=== PATIENT | male | born 2000 | race Hispanic/Latino ===

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

== ENCOUNTER 2020-01-13 08:00 | Emergency (ER) | payer SELFPAY ==
[2020-01-13] MEDS ORDERED: HYDROCODONE/APAP 5/325 MG TAB ONE (08:29)
[2020-01-13] MEDS ORDERED: IBUPROFEN 400 MG TAB ONE (08:30)
[2020-01-13] MEDS ORDERED: IBUPROFEN 200 MG TAB PO ONE (08:30)
[2020-01-13] MEDS ORDERED: TETANUS & DIPHTHERIA TOX,ADULT 0.5 ML VIAL ONE (08:30)
--- NOTE | 2020-01-13 09:09 | RAD REPORT ---
EXAM DESCRIPTION: RAD - Tib Fib Right - 01/13/2020 8:51 am CLINICAL HISTORY: Right leg pain status post injury FINDINGS: No fracture is seen
--- NOTE | 2020-01-13 09:11 | RAD REPORT ---
EXAM DESCRIPTION: RAD - Foot Right 3 View - 01/13/2020 8:51 am CLINICAL HISTORY: Right foot pain status post injury FINDINGS: No fracture or dislocation is seen
--- NOTE | 2020-01-13 09:11 | RAD REPORT ---
EXAM DESCRIPTION: Syed Single View01/13/2020 8:51 am CLINICAL HISTORY: Chest pain COMPARISON: none FINDINGS: The lungs appear clear of acute infiltrate. The heart is normal size IMPRESSION: No acute abnormalities displayed
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
[2020-01-13 11:43] VITALS: TEMP 98
[2020-01-13 11:46] VITALS: BP 118/76; O2SAT 97
--- NOTE | 2020-01-13 11:59 | RAD REPORT ---
EXAM DESCRIPTION: US - Lower Extremity Artery Uni Ltd - 01/13/2020 10:03 am CLINICAL HISTORY: Leg injury with leg pain COMPARISON: None FINDINGS: The waveforms of the right superficial femoral, right common femoral, right popliteal, rig ht posterior tibial and right dorsalis pedis artery are triphasic. No occlusion. No high-grade stenosis IMPRESSION: Unremarkable exam
== END 2020-01-13 11:34 | disposition home or self-care (01) ==
LOC: ER 08:00
DX: S97.01XA Crushing injury of right ankle, initial encounter (principal); S20.419A Abrasion of unspecified back wall of thorax, initial encounter; S70.211A Abrasion, right hip, initial encounter; S80.811A Abrasion, right lower leg, initial encounter; X58.XXXA Exposure to other specified factors, initial encounter; Y93.9 Activity, unspecified; Y92.89 Other specified places as the place of occurrence of the external cause; F17.210 Nicotine dependence, cigarettes, uncomplicated
CPT/HCPCS: 71045; 90471; 90714; 93926; 99284

== ENCOUNTER 2020-02-20 09:59 | Emergency (ER) | payer SELFPAY ==
[2020-02-20 10:48] LABS: Protime INR 1.16
[2020-02-20 11:02] LABS: ALT/SGPT 10 U/L (12-78); AST/SGOT 9 U/L (15-37); Albumin 4.1 g/dL (3.4-5.0); Alkaline Phosphatase 54 U/L (45-117); BUN Blood Urea Nitrogen 9 mg/dL (7-18); Bicarbonate 27 mmol/L (21-32); Bilirubin Direct 0.3 mg/dL (0-0.2); Glucose Level 95 mg/dL (74-106); Potassium 3.4 mmol/L (3.5-5.1); Protein, Total 7.5 g/dL (6.4-8.2); Sodium Level 140 mmol/L (136-145)
[2020-02-20 11:03] LABS: Barbiturates NEGATIVE (NEGATIVE); Benzodiazepines POSITIVE (NEGATIVE); Cocaine POSITIVE (NEGATIVE); METHAMPHETAM POSITIVE (NEGATIVE); Methadone NEGATIVE (NEGATIVE); Opiates NEGATIVE (NEGATIVE); Phencyclidine NEGATIVE (NEGATIVE); THC Cannibis POSITIVE (NEGATIVE)
[2020-02-20 11:09] LABS: Absolute Lymphocytes (CBC) 1.6 K/uL (0.7-4.9); Basophils % 0.3 % (0-1.3); Lymphocytes % 21.3 % (15.3-44.8); MPV 8.5 fL (7.6-11.3); RBC Red Blood Cell Count 5.05 M/uL (4.33-5.43)
[2020-02-20 12:11] LABS: Urine Blood NEGATIVE (NEG); Urine Glucose NEGATIVE (NEG); Urine Protein 1+ (NEG); Urine Specific Gravity 1.025 (1.005-1.030); Urine pH 6.5 (5.0-7.0)
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
--- NOTE | 2020-02-20 13:38 | ER ---
Nurse's Notes [facility] Name: El Cartwright Age: 19 yrs Sex: Male : 2000 Arrival Date: 02/20/2020 Time: 10:02 Bed 19 Private MD: Diagnosis: Acute stress reaction;Abrasion of forearm Presentation: 02/19 10:13 Chief complaint: EMS states: mother called because patient had self inflicted pain upon ss himself by cutting bilateral forearms with a razor blade. Multiple superficial abrasions noted to bilateral forearms. No bleeding noted at this time. Pt denies SI/HI at this time and states that he was "preparing" for a physical fight for when his dad got home. Pt states, "my dad is not an easy person to talk to. We got in an argument this morning and we were supposed to fight when he got home.. Coronavirus screen: Client denies travel out of the [place] in the last 14 days. At this time, the client does not indicate any symptoms associated with coronavirus-19. Ebola Screen: Patient denies exposure to infectious person. Patient denies travel to an Ebola-affected area in the 21 days before illness onset. Initial Sepsis Screen: Does the patient meet any 2 criteria? No. Patient's initial sepsis screen is negative. Does the patient have a suspected source of infection? No. Patient's initial sepsis screen is negative. Risk Assessment: Do you want to hurt yourself or someone else? Patient reports no desire to harm self or others. Onset of symptoms was February 20, 2020. 10:13 Method Of Arrival: EMS: [facility] 10:13 Acuity: ELIZABETH 2 ss Historical: - Allergies: 10:20 No Known Allergies; ss - Home Meds: 10:20 "supposed to take Bipolar medication but never has" [Active]; ss - PMHx: 10:20 sleeping disorder; RLS; Bipolar disorder; ss - PSHx: 10:20 R femur; ss - Immunization history:: Adult Immunizations up to date. - Social history:: Smoking status: Patient denies any tobacco usage or history of. Screenin:31 Abuse screen: Denies threats or abuse. Nutritional screening: No deficits noted. em Tuberculosis screening: No symptoms or risk factors identified. Fall Risk None identified. Assessment: 10:30 General: Appears in no apparent distress. comfortable, Behavior is calm, cooperative, em appropriate for age. Pain: Denies pain. Neuro: Level of Consciousness is awake, alert, obeys commands, Oriented to person, place, time, situation, Appropriate for age. Cardiovascular: Capillary refill < 3 seconds Patient's skin is warm and dry. Respiratory: Airway is patent Respiratory effort is even, unlabored, Respiratory pattern is regular, symmetrical. Derm: Skin is intact, is healthy with good turgor, Skin is pink, warm \\T\\ dry. Wound noted Other: superficial lacerations noted to jah. forearms, no bleeding noted at this time. Musculoskeletal: Capillary refill < 3 seconds, Range of motion: intact in all extremities. 11:30 Reassessment: Patient appears in no apparent distress at this time. Patient is alert, em oriented x 3, equal unlabored respirations, skin warm/dry/pink. 12:08 Reassessment: valuables inventory check list done and placed on chart (Iphone, arch pad cementer, em shorts, shirt, shoes, wallet, 225.00 sosa, ID card, and S.S. card) ,items will be sent with security. 12:55 Reassessment: pt on the phone via [employer] with [employer] screeners. em 13:44 Reassessment: Patient appears in no apparent distress at this time. provider at bedside.em Psych: 10:30 Subjective: Patient's mood is sad, Delusions are denied, Hallucinations are denied em Having thoughts of currently denies SI/HI, just is angry with father. Objective: Patient is cooperative, Speech is normal, Affect is appropriate, Patient has mutilated themselves by superficial lacerations to jah. forearms. Interventions: Removed personal items and placed in bag. Patient placed in hospital gown. Searched person for dangerous items. Urine collected and sent for urine drug test. Belonging list filled out. Suicide Risk Assessment: Sad Person Scale: Sex of patient: Male: Score 1 point. Age of patient: Score 0 point if patient falls outside of specified age parameters. Depression: Score 1 point if signs of depression are present. Previous Attempt: Score 0 point if patient has not previously attempted suicide. Substance Abuse: Score 1 point if patient abuses alcohol or drugs. Rational Thinking: Score 0 point if patient has rational thinking. Social Support: Score 1 point if social support is lacking and/or unavailable. Organized Plan: Score 0 if patient did not have an organized plan in place. TOTAL POINTS: If total points are 3-4, proposed clinical action is close follow-up/consider hospitalization. Safety Checks: Personal items have been removed. Door is open. No visitors are present at this time. Patient uses benzodiazepines Patient uses marijuana. Commitment: Patient will be a voluntary commitment. Vital Signs: 10:31 BP 105 / 63; Pulse 62; Resp 18; Temp 98.3(O); Pulse Ox 100% on R/A; Weight 74.84 kg; em Height 5 ft. 10 in. (177.80 cm); Pain 0/10; 10:31 Body Mass Index 23.67 (74.84 kg, 177.80 cm) em ED Course: 10:02 Patient arrived in ED. ss 10:02 Rakesh Day NP is PHCP. pm1 10:03 Rolando Green MD is Attending Physician. pm1 10:18 Deo Grady, RN is Primary Nurse. em 10:18 Triage completed. ss 10:20 Arm band placed on right wrist. ss 10:25 Urine collected: clean catch specimen, elsa colored. dh3 10:28 EKG done, by ED staff, reviewed by Rakesh Day NP. dh3 10:30 Patient has correct armband on for positive identification. Placed in gown. Bed in low em position. Call light in reach. Side rails up X2. Valuables inventory done. Locked in safe. See valuables checklist. 10:30 Missed attempt(s): 20 gauge in right forearm. Bleeding controlled, band aid applied, dh3 catheter tip intact. 10:32 Initial lab(s) drawn, by de, sent to lab. Inserted saline lock: 22 gauge in right hand, dh3 using aseptic technique. Blood collected. 11:48 called the [facility] Crisis line to page out a screener to come evaluate the patient. eb 14:04 No provider procedures requiring assistance completed. IV discontinued, intact, em bleeding controlled, No redness/swelling at site. Pressure dressing applied. Administered Medications: No medications were administered Outcome: 13:38 Discharge ordered by MD. pm1 14:04 Discharged to home ambulatory. em 14:04 Condition: improved 14:04 Discharge instructions given to patient, Instructed on discharge instructions, follow up and referral plans. Demonstrated understanding of instructions, follow-up care. 14:05 Patient left the ED. em Signatures: Deo Grady RN RN em Smirch, Shelby, RN RN ss Rakesh Day, XANDER TAMALE MACHINE FEEDER pm1 Shira Wall 3 Shelley Ramirez
[2020-02-20 14:13] VITALS: BP 105/63; TEMP 98.3; O2SAT 100
--- NOTE | 2020-02-21 15:36 | EKG ---
Test Date: 2020-02-20 Test Time: 10:17:33 Windows Application Developer: JASVIR MEASUREMENT RESULTS: Intervals: Rate: 56 MA: 136 QRSD: 100 QT: 384 QTc: 370 [place]: P: 41 MA: 136 QRS: 62 T: 54 INTERPRETIVE STATEMENTS: Sinus bradycardia Otherwise normal ECG Compared to ECG 03/09/2018 18:09:38 Sinus rhythm no longer present Electronically Signed On 02-21-20 15:34:45 CDT by Dez Akhtar
== END 2020-02-20 14:05 | disposition home or self-care (01) ==
LOC: ER 09:59
DX: F43.0 Acute stress reaction (principal); S50.812A Abrasion of left forearm, initial encounter; S50.811A Abrasion of right forearm, initial encounter; F31.9 Bipolar disorder, unspecified
CPT/HCPCS: 36415; 80048; 80076; 80307; 80320; 80329; 81003; 85025; 85610; 85730; 93005; 99285

== ENCOUNTER 2020-05-17 08:41 | Emergency (ER) | payer SELFPAY ==
[2020-05-17] MEDS ORDERED: LORazepam 2 MG/ML VIAL ONE ×2 (09:08→09:59)
[2020-05-17] MEDS ORDERED: THIAMINE 200 MG/2 ML INJ ONE (09:09)
[2020-05-17] MEDS ORDERED: FAMOTIDINE 20 MG/2 ML VIAL IV ONE (09:09)
[2020-05-17] MEDS ORDERED: ONDANSETRON 4 MG/2 ML VIAL ONE (09:09)
[2020-05-17] MEDS ORDERED: NA CHLORIDE 0.9% 1,000 ML ONE (09:09)
--- NOTE | 2020-05-17 09:26 | RAD REPORT ---
EXAM DESCRIPTION: RAD - Chest Single View - 05/17/2020 9:13 am CLINICAL HISTORY: COUGH Chest pain. COMPARISON: Chest Single View dated 01/13/2020 FINDINGS: Portable technique limits examination quality. The lungs are grossly clear. The heart is normal in size. No displaced fractures. IMPRESSION: No acute intrathoracic process suspected.
[2020-05-17 09:35] LABS: Absolute Lymphocytes (CBC) 1.1 K/uL (0.7-4.9); Basophils % 0.2 % (0-1.3); Hematocrit 47.9 % (39.6-49.0); Lymphocytes % 5.9 % (15.3-44.8); MPV 8.5 fL (7.6-11.3); RBC Red Blood Cell Count 5.41 M/uL (4.33-5.43)
[2020-05-17 09:39] LABS: Protime INR 1.18
[2020-05-17 09:59] LABS: ALT/SGPT 19 U/L (12-78); AST/SGOT 36 U/L (15-37); Albumin 4.6 g/dL (3.4-5.0); Alkaline Phosphatase 50 U/L (45-117); BUN Blood Urea Nitrogen 9 mg/dL (7-18); Bicarbonate 20 mmol/L (21-32); Bilirubin Direct 0.2 mg/dL (0-0.2); Glucose Level 164 mg/dL (74-106); Magnesium 1.6 mg/dL (1.8-2.4); Potassium 3.4 mmol/L (3.5-5.1); Protein, Total 7.8 g/dL (6.4-8.2); Sodium Level 138 mmol/L (136-145); Troponin (Emerg Dept Use Only) < 0.02 ng/mL (0.0-0.045)
--- NOTE | 2020-05-17 10:06 | RAD REPORT ---
EXAM DESCRIPTION: CT - Head Brain Wo Cont - 05/17/2020 9:39 am CLINICAL HISTORY: CONFUSED Headache, drowsiness COMPARISON: No comparisons TECHNIQUE: All CT scans are performed using dose optimization technique as appropriate and may inclu de automated exposure control or mA/KV adjustment according to patient size. FINDINGS: No intracranial hemorrhage, hydrocephalus or extra-axial fluid collection.No areas of brai n edema or evidence of midline shift. The paranasal sinuses and mastoids are clear. The calvarium is intact. IMPRESSION: No acute intracranial abnormality.
[2020-05-17 10:16] LABS: Blood Morphology Comment NOT SEEN (NOT SEEN); Platelet Estimate ADEQ; White Blood Cell Scan OK (OK)
--- NOTE | 2020-05-17 10:36 | EDPHYS ---
Physician Documentation [facility] Name: El Cartwright Age: 19 yrs Sex: Male : 2000 Arrival Date: 05/17/2020 Time: 08:45 Bed 7 Private MD: ED Physician Rolando Green HPI: 05/17 08:48 This 19 yrs old Male presents to ER via EMS with complaints of vomiting blood, donte substance abuse. 08:48 The patient presents to the emergency department after a known overdose, a result of [facility] recreational substance abuse. Context: Method: the patient has a confirmed or suspected ingestion, of alcohol, amphetamines, of benzodiazepines, of cocaine. Associated signs and symptoms: Pertinent positives: depression, dizziness, loss of consciousness, vomiting. Severity of symptoms: At their worst the symptoms were mild moderate in the emergency department the symptoms are unchanged. substance abuse, vomiting. The patient presents with trouble concentrating. Onset: The symptoms/episode began/occurred 3 day(s) ago. Associated signs and symptoms: The patient has no apparent associated signs or symptoms. Historical: - Allergies: 08:48 No Known Allergies; bp - Home Meds: 08:48 "supposed to take Bipolar medication but never has" [Active]; bp - PMHx: 08:48 Bipolar disorder; RLS; sleeping disorder; bp - Immunization history:: Adult Immunizations up to date. - Social history:: Smoking status: unknown. - Family history:: not pertinent. ROS: 08:48 Constitutional: Negative for fever, chills, and weight loss, Eyes: Negative for injury, donte pain, redness, and discharge, ENT: Negative for injury, pain, and discharge, Neck: Negative for injury, pain, and swelling, Cardiovascular: Negative for chest pain, palpitations, and edema, Respiratory: Negative for shortness of breath, cough, wheezing, and pleuritic chest pain, Back: Negative for injury and pain, : Negative for injury, bleeding, discharge, and swelling, MS/Extremity: Negative for injury and deformity, Skin: Negative for injury, rash, and discoloration, Neuro: Negative for headache, weakness, numbness, tingling, and seizure, Psych: Negative for depression, anxiety, suicide ideation, homicidal ideation, and hallucinations, Allergy/Immunology: Negative for hives, rash, and allergies, Endocrine: Negative for neck swelling, polydipsia, polyuria, polyphagia, and marked weight changes, Hematologic/Lymphatic: Negative for swollen nodes, abnormal bleeding, and unusual bruising. 08:48 Abdomen/GI: Positive for abdominal pain, nausea and vomiting. Exam: 08:48 Constitutional: This is a well developed, well nourished patient who is awake, alert, donte and in no acute distress. Head/Face: Normocephalic, atraumatic. Eyes: Pupils equal round and reactive to light, extra-ocular motions intact. Lids and lashes normal. Conjunctiva and sclera are non-icteric and not injected. Cornea within normal limits. Periorbital areas with no swelling, redness, or edema. ENT: Nares patent. No nasal discharge, no septal abnormalities noted. Tympanic membranes are normal and external auditory canals are clear. Oropharynx with no redness, swelling, or masses, exudates, or evidence of obstruction, uvula midline. Mucous membranes moist. Neck: Trachea midline, no thyromegaly or masses palpated, and no cervical lymphadenopathy. Supple, full range of motion without nuchal rigidity, or vertebral point tenderness. No Meningismus. Chest/axilla: Normal chest wall appearance and motion. Nontender with no deformity. No lesions are appreciated. Cardiovascular: Regular rate and rhythm with a normal S1 and S2. No gallops, murmurs, or rubs. Normal PMI, no JVD. No pulse deficits. Respiratory: Lungs have equal breath sounds bilaterally, clear to auscultation and percussion. No rales, rhonchi or wheezes noted. No increased work of breathing, no retractions or nasal flaring. Abdomen/GI: Soft, non-tender, with normal bowel sounds. No distension or tympany. No guarding or rebound. No evidence of tenderness throughout. Back: No spinal tenderness. No costovertebral tenderness. Full range of motion. Male : Normal genitalia with no discharge or lesions. Skin: Warm, dry with normal turgor. Normal color with no rashes, no lesions, and no evidence of cellulitis. MS/ Extremity: Pulses equal, no cyanosis. Neurovascular intact. Full, normal range of motion. Psych: Awake, alert, with orientation to person, place and time. Behavior, mood, and affect are within normal limits. 08:48 Neuro: Orientation: to person, place, Not oriented to time, Mentation: confused, Memory: immediate memory is intact, Cranial nerves: is grossly normal based on the patient's age, no acute changes, Cerebellar function: no acute changes, Motor: moves all fours, Sensation: no obvious gross deficits, appropriate no acute changes, Gait: not tested. Deep tendon reflexes are 2+ (normal) in the bilateral brachioradialis, bicep, tricep and patellar and Achilles tendons, seizure activity, is not displayed by the patient. Vital Signs: 08:45 BP 121 / 97; Pulse 93; Resp 18; Temp 97.5; Pulse Ox 99% ; bp 09:30 BP 133 / 72; Pulse 91; Resp 17; Pulse Ox 100% ; bp 10:30 BP 122 / 71; Pulse 87; Resp 16; Temp 97.5; Pulse Ox 100% ; zb MDM: 08:45 Patient medically screened. donte 08:53 Differential diagnosis: Ingestion/exposure to drugs, numerous hypoglycemia, closed head donte injury. Differential Diagnosis altered mental status. Differential Diagnosis: CVA, electrolyte abnormality, alcohol intoxication, hypoglycemia, intracranial bleed, overdose, pneumonia, seizure, TIA, UTI, volume depletion. Data reviewed: vital signs, nurses notes, lab test result(s), EKG, radiologic studies, CT scan, plain films. Data interpreted: reinsurance claim analyst: rate is 93 beats/min, rhythm is regular, Pulse oximetry: is not applicable for this patient encounter. Test interpretation: by ED physician or midlevel provider: ECG, plain radiologic studies. Counseling: I had a detailed discussion with the patient and/or guardian regarding: the historical points, exam findings, and any diagnostic results supporting the discharge/admit diagnosis, lab results, radiology results. 05/17 08:47 Order name: Basic Metabolic Panel; Complete Time: 10:32 donte 05/17 08:47 Order name: CBC with Diff; Complete Time: 10:32 [facility] 05/17 08:47 Order name: LFT's; Complete Time: 10:32 donte 05/17 08:47 Order name: Magnesium; Complete Time: 10:32 donte 05/17 08:47 Order name: Troponin (emerg Dept Use Only); Complete Time: 10:32 [facility] 05/17 08:47 Order name: Acetaminophen; Complete Time: 10:32 donte 05/17 08:47 Order name: XRAY Chest (1 view); Complete Time: 10:32 [facility] 05/17 08:47 Order name: ETOH Level; Complete Time: 10:32 [facility] 05/17 08:47 Order name: PT-INR; Complete Time: 10:32 [facility] 05/17 08:47 Order name: Ptt, Activated; Complete Time: 10:32 [facility] 05/17 08:47 Order name: Salicylate; Complete Time: 10:32 [facility] 05/17 08:55 Order name: CT Head Brain wo Cont; Complete Time: 10:32 [facility] 05/17 10:16 Order name: CBC Smear Scan; Complete Time: 10:32 EDMS 05/17 08:47 Order name: EKG; Complete Time: 08:48 [facility] 05/17 08:47 Order name: Cardiac monitoring; Complete Time: 09:27 [facility] 05/17 08:47 Order name: EKG - Nurse/Tech; Complete Time: 09:27 [facility] 05/17 08:47 Order name: IV Saline Lock; Complete Time: 09:01 [facility] 05/17 08:47 Order name: Labs collected and sent; Complete Time: 09:27 [facility] 05/17 08:47 Order name: O2 Per Protocol; Complete Time: 09:01 [facility] 05/17 08:47 Order name: O2 Sat Monitoring; Complete Time: 09:01 [facility] Administered Medications: 09:05 Drug: NS 0.9% 1000 ml Route: IV; Rate: 1 bolus; Site: left forearm; bp 10:43 Follow up: IV Status: Completed infusion; IV Intake: 1000ml zb 09:05 Drug: Pepcid 20 mg Route: IVP; Site: left forearm; bp 09:49 Follow up: Response: Nausea is decreased bp 09:05 Drug: Thiamine 100 mg Route: IV; Rate: bolus; Site: left forearm; bp 10:43 Follow up: IV Status: Completed infusion; IV Intake: 100ml zb 09:05 Drug: Zofran (Ondansetron) 4 mg Route: IVP; Site: left forearm; bp 09:50 Follow up: Response: Nausea is decreased bp 09:05 Drug: Ativan 1 mg Route: IVP; Site: left forearm; bp 09:50 Follow up: Response: No adverse reaction; No change in condition bp 09:49 Drug: Ativan 1 mg Route: IVP; Site: left forearm; bp 09:50 Follow up: Response: No adverse reaction bp 10:35 Drug: Potassium Effervescent Tablet 25 mEq Route: PO; zb 10:45 Follow up: Response: No adverse reaction zb 10:35 Drug: Magnesium Oxide 400 mg Route: PO; zb 10:45 Follow up: Response: No adverse reaction zb 10:44 Not Given (Patient Refused): Magnesium Sulfate 1 grams IVPB once over 1 hrs zb Disposition: 05/17/20 10:35 Patient has left against medical advice. Impression: Cocaine abuse, Adverse effect of amphetamines, Adverse effect of benzodiazepines, Hypokalemia, Hypomagnesemia, Abuse of other non-psychoactive substances. - Patients states they are going to Home. - Condition is Undetermined. - Discharge Instructions: Potassium Content of Foods, Hypomagnesemia, Substance Use Disorder, Hypokalemia. Follow up: Private Physician; When: Upon discharge from the Emergency Department; Reason: Recheck today's complaints, Re-evaluation by your physician. - Problem is new. - Symptoms are unchanged. Signatures: Dispatcher [employer] EDOH Rolando Green MD MD cha Peltier, Brian, RN RN Kenia Thompson RN RN zb Corrections: (The following items were deleted from the chart) 10:43 10:35 05/17/2020 10:35 Patients has left against medical advice. Impression: Cocaine zb abuse; Adverse effect of amphetamines; Adverse effect of benzodiazepines; Hypokalemia; Hypomagnesemia; Abuse of other non-psychoactive substances. Patient states they are going to Home. Condition is Undetermined. Follow up: Private Physician; When: Upon discharge from the Emergency Department; Reason: Recheck today's complaints, Re-evaluation by your physician. Problem is new. Symptoms are unchanged. donte
--- NOTE | 2020-05-17 10:36 | ER ---
Nurse's Notes [facility] Name: El Cartwright Age: 19 yrs Sex: Male : 2000 Arrival Date: 05/17/2020 Time: 08:45 Bed 7 Private MD: Diagnosis: Cocaine abuse;Adverse effect of amphetamines;Adverse effect of benzodiazepines;Hypokalemia;Hypomagnesemia;Abuse of other non-psychoactive substances Presentation: 05/17 08:45 Chief complaint: EMS states: NAUSEA/VOMITING, DETOX OFF XANAX, METH, COKE, MJ. bp Coronavirus screen: At this time, the client does not indicate any symptoms associated with coronavirus-19. Ebola Screen: No symptoms or risks identified at this time. Initial Sepsis Screen: Does the patient meet any 2 criteria? HR > 90 bpm. No. Patient's initial sepsis screen is negative. Does the patient have a suspected source of infection? No. Patient's initial sepsis screen is negative. Risk Assessment: Do you want to hurt yourself or someone else? Patient reports no desire to harm self or others. Note LAST USED DRUGS 4 DAYS AGO. Onset of symptoms is unknown. Care prior to arrival: Medication(s) given: Normal saline infusion, 1000 mL, IV initiated. 18 GA, in the left forearm. 08:45 Method Of Arrival: EMS: [facility] bp 08:45 Acuity: ELIZABETH 3 bp Triage Assessment: 08:48 General: Appears distressed, uncomfortable, slender, unkempt, Behavior is agitated, bp anxious. Pain: Denies pain. EENT: Eyes PUPILS CONSTRICTED. Neuro: Level of Consciousness is awake, confused, Oriented to Appropriate for age. Cardiovascular: Rhythm is sinus tachycardia. GI: Abdomen is non-distended, Bowel sounds present X 4 quads. Abd is soft X 4 quads. : No signs and/or symptoms were reported regarding the genitourinary system. Derm: Skin is clammy, Skin is pale, Skin temperature is cool. Musculoskeletal: No deficits noted. Historical: - Allergies: 08:48 No Known Allergies; bp - Home Meds: 08:48 "supposed to take Bipolar medication but never has" [Active]; bp - PMHx: 08:48 Bipolar disorder; RLS; sleeping disorder; bp - Immunization history:: Adult Immunizations up to date. - Social history:: Smoking status: unknown. - Family history:: not pertinent. Screenin:50 Abuse screen: Denies threats or abuse. Denies injuries from another. Nutritional bp screening: No deficits noted. Tuberculosis screening: No symptoms or risk factors identified. Fall Risk None identified. Assessment: 08:50 General: SEE TRIAGE NOTE. bp 09:42 Reassessment: Patient appears in no apparent distress at this time. No changes from bp previously documented assessment. Patient and/or family updated on plan of care and expected duration. Pain level reassessed. PT TO CT. 10:28 Reassessment: Patient appears in no apparent distress at this time. Patient and/or bp family updated on plan of care and expected duration. Pain level reassessed. PT OOB AND D/C OWN PIV AND MONITORING DESPITE STAFF OBJECTIONS, MD INFORMED. 10:42 Reassessment: PT LEAVING AMA. URGED TO REMAIN FOR FURTHER TREATMENT BY STAFF AND allison LARA BUT REFUSED. AMA FORM SIGNED. PT AOx4, AMBULATORY WITH STEADY GAIT. Vital Signs: 08:45 BP 121 / 97; Pulse 93; Resp 18; Temp 97.5; Pulse Ox 99% ; bp 09:30 BP 133 / 72; Pulse 91; Resp 17; Pulse Ox 100% ; bp 10:30 BP 122 / 71; Pulse 87; Resp 16; Temp 97.5; Pulse Ox 100% ; zb ED Course: 08:45 Patient arrived in ED. donte 08:45 Burt Schwab, NING is Primary Nurse. bp 08:45 Rolando Green MD is Attending Physician. donte 08:47 Triage completed. bp 08:50 Arm band placed on. bp 08:50 Patient has correct armband on for positive identification. Bed in low position. Call bp light in reach. Side rails up X2. court recording monitor on. Pulse ox on. NIBP on. 08:50 Maintain EMS IV. Dressing intact. Good blood return noted. Site clean \\T\\ dry. Gauge \\T\\ bp site: 18 G LEFT FA. 09:14 XRAY Chest (1 view) In Process Unspecified. EDMS 09:39 CT Head Brain wo Cont In Process Unspecified. EDMS 09:40 CT completed. Patient tolerated procedure well. Patient moved to CT via stretcher. [id number] Patient moved back from CT. 10:42 No provider procedures requiring assistance completed. IV discontinued, intact, zb bleeding controlled, No redness/swelling at site. Pressure dressing applied. Administered Medications: 09:05 Drug: NS 0.9% 1000 ml Route: IV; Rate: 1 bolus; Site: left forearm; bp 10:43 Follow up: IV Status: Completed infusion; IV Intake: 1000ml zb 09:05 Drug: Pepcid 20 mg Route: IVP; Site: left forearm; bp 09:49 Follow up: Response: Nausea is decreased bp 09:05 Drug: Thiamine 100 mg Route: IV; Rate: bolus; Site: left forearm; bp 10:43 Follow up: IV Status: Completed infusion; IV Intake: 100ml zb 09:05 Drug: Zofran (Ondansetron) 4 mg Route: IVP; Site: left forearm; bp 09:50 Follow up: Response: Nausea is decreased bp 09:05 Drug: Ativan 1 mg Route: IVP; Site: left forearm; bp 09:50 Follow up: Response: No adverse reaction; No change in condition bp 09:49 Drug: Ativan 1 mg Route: IVP; Site: left forearm; bp 09:50 Follow up: Response: No adverse reaction bp 10:35 Drug: Potassium Effervescent Tablet 25 mEq Route: PO; zb 10:45 Follow up: Response: No adverse reaction zb 10:35 Drug: Magnesium Oxide 400 mg Route: PO; zb 10:45 Follow up: Response: No adverse reaction zb 10:44 Not Given (Patient Refused): Magnesium Sulfate 1 grams IVPB once over 1 hrs zb Intake: 10:43 IV: 100ml; Total: 100ml. zb 10:43 IV: 1000ml; Total: 1100ml. zb Outcome: 10:42 AMA AMA form signed zb 10:42 Condition: stable 10:43 Patient left the ED. zb Signatures: Dispatcher [employer] EDRolando Cates MD MD cha Peltier, Brian RN RN Aurelia Ceballos Zipporah, RN RN zradha
[2020-05-17] MEDS ORDERED: POTASSIUM 25 MEQ EFFERV TAB ONE (10:50)
[2020-05-17] MEDS ORDERED: MAGNESIUM OXIDE 400 MG TAB ONE (10:50)
[2020-05-17 12:12] VITALS: TEMP 97.5
[2020-05-17 12:13] VITALS: O2SAT 100
[2020-05-17 12:15] VITALS: BP 122/71
--- NOTE | 2020-05-18 07:26 | EKG ---
Test Date: 2020-05-17 Test Time: 09:16:44 Certified Professional Controller: BP MEASUREMENT RESULTS: Intervals: Rate: 66 LA: 114 QRSD: 90 QT: 392 QTc: 410 [place]: P: 95 LA: 114 QRS: 78 T: 70 INTERPRETIVE STATEMENTS: Normal sinus rhythm Normal ECG Compared to ECG 02/20/2020 10:17:33 Sinus bradycardia no longer present Electronically Signed On 05-18-20 07:24:32 [employer] by Dez Akhtar
== END 2020-05-17 10:43 | disposition left against medical advice (07) ==
LOC: ER 08:41
DX: F14.10 Cocaine abuse, uncomplicated (principal); F55.8 Abuse of other non-psychoactive substances; T43.625A Adverse effect of amphetamines, initial encounter; E87.6 Hypokalemia; E83.42 Hypomagnesemia; F31.9 Bipolar disorder, unspecified
CPT/HCPCS: 36415; 70450; 71045; 80048; 80076; 80320; 80329; 83735; 84484; 85025; 85610; 85730; 93005; 96365; 96366; 96375; 99285; J2405; J3411; J7030

== ENCOUNTER 2020-09-17 22:53 | Observation (INO) | payer SELFPAY ==
--- OUTSIDE RECORDS SUMMARY | 2020-09-17 22:56 | XMS REPORT | Continuity of Care Document ---
:2000 Author Organization [facility] t Address [address] [place] [address] Care Team Providers Name Role Phone Unavailable Unavailable Unavailable Payers Payer Name Policy Type Policy Number Effective Date Expiration Date S ource Problems This patient has no known problems. Allergies, Adverse Reactions, Alerts Allergy Allergy Status Severity Reaction(s) Onset Inactive Treating Comm ents Source Name Type Date Date Clinician No Known DA Active U 2019-07 [facility] 09-04 [facility] s 00:00: d 00 [facility] Medications This patient has no known medications. Procedures This patient has no known procedures. Results Test Description Test Time Test Comments Results Result Comments Source BASIC METABOLIC PANEL 2020-07-04 14:48:00 Test Item Value Reference Range Interpretation Comme nts SODIUM (test code = NA) 140 mmol/L 134-147 N POTASSIUM (test code = K) 3.4 mmol/L 3.4-5.0 N CHLORIDE (test code = CL) 108 mmol/L 100-108 N CARBON DIOXIDE (test code = CO2) 24 mmol/L 21-32 N ANION GAP (test code = GAP) 8.0 GAP calc 4.0-15.0 N GLUCOSE (test code = GLU) 133 MG/DL 70-110 H BLOOD UREA NITROGEN (test code = BUN) 11 MG/DL 7-18 N GLOMERULAR FILTRATION RATE (test code = GFR) >=60 max estimate estG FR >60 CREATININE (test code = CREAT) 1.3 MG/DL 0.8-1.3 N CALCIUM (test code = CA) 9.2 MG/DL 8.5-10.1 N Completed by Nursing: NOHEPATIC FUNCTION [id number] 14:48:00 Test Item Value Reference Range Interpretation Comments TOTAL PROTEIN (test code = PROT) 7.6 G/DL 6.4-8.2 N ALBUMIN (test code = ALB) 4.1 G/DL 3.4-5.0 N BILIRUBIN TOTAL (test code = BILT) 0.50 MG/DL 0.2-1.2 N BILIRUBIN DIRECT (test code = 0.20 MG/DL 0.00-0.30 N BILD) BILIRUBIN INDIRECT (test code = 0.30 MG/DL 0.2-1.2 N BILIND) SGOT/AST (test code = AST) 14 Unit/L 15-37 L SGPT/ALT (test code = ALT) 15 Unit/L 12-78 N ALKALINE PHOSPHATASE TOTAL (test 66 Unit/L 50-136 N code = ALKP) Completed by Nursing: NOCREATINE KINASE (CK)2020-07-04 14:48:00 Test Item Value Reference Range Interpretation Comments CREATINE KINASE (CK) (test code = 77 Unit/L 26-192 N CK) Completed by Nursing: [id number] 14:48:00 Test Item Value Reference Range Interpretation Comments TROPONIN-I (test < 0.015 NG/ML 0.000-0.045 N Negative: </= 0.045 code = TROPI) Positive: >/= 0.046 Correlation wit h serial results, other cardiac markers, and cl inical findings is nec essary to determine the c linical significance of this result. Quantit ative results using d ifferent methodologies s hould not be compared to one another as nume rical results may dana yby method. Completed by Nursing: [id number] 14:48:00 Test Item Value Reference Range Interpretation Comments ALCOHOL (test code = ALC) < 3 MG/DL 0-10 N Completed by Nursing: NOCBC W/AUTO [id number] 14:44:00 Test Item Value Reference Range Interpretation Comments WHITE BLOOD CELL (test code = 11.7 K/mm3 3.5-11.0 H WBC) RED BLOOD CELL (test code = 5.56 M/mm3 4.70-6.10 N RBC) HEMOGLOBIN (test code = HGB) 16.2 G/DL 12.3-15.9 H HEMATOCRIT (test code = HCT) 49.4 % 35.8-46.7 H MEAN CELL VOLUME (test code = 88.8 Fl 86.3-98.9 N MCV) MEAN CELL HGB (test code = MCH) 29.1 pg 28.9-34.4 N MEAN CELL HGB CONCETRATION 32.8 G/DL 32.1-34.5 N (test code = MCHC) RED CELL DISTRIBUTION WIDTH 11.9 SD 11.5-14.5 N (test code = RDW) PLATELET COUNT (test code = 242 K/mm3 150-450 N PLT) MEAN PLATELET VOLUME (test code 9.70 fL 7.0-9.6 H = MPV) NEUTROPHIL % (test code = NT%) 82.1 % 24.0-85.0 N IMMATURE GRANULOCYTE % (test 0.5 % 0.0-5.0 N code = IG%) LYMPHOCYTE % (test code = LY%) 10.9 % 20.5-51.1 L MONOCYTE % (test code = MO%) 5.2 % 1.7-9.3 N EOSINOPHIL % (test code = EO%) 1.0 % 0.0-6.0 N BASOPHIL % (test code = BA%) 0.3 % 0.0-2.0 N NUCLEATED RBC % (test code = 0.0 /100WBC% 0.0-1.0 N NRBC%) NEUTROPHIL # (test code = NT#) 9.6 K/mm3 1.8-7.6 H IMMATURE GRANULOCYTE # (test 0.06 x10 3/uL 0.00-0.03 H code = IG#) LYMPHOCYTE # (test code = LY#) 1.3 K/mm3 0.6-3.0 N MONOCYTE # (test code = MO#) 0.6 K/mm3 0.2-1.5 N EOSINOPHIL # (test code = EO#) 0.1 K/mm3 0.0-0.4 N BASOPHIL # (test code = BA#) 0.0 K/mm3 0.0-0.2 N NUCLEATED RBC # (test code = 0.0 K/mm3 0.00-0.01 N NRBC#) MANUAL DIFF REQUIRED (test code NO DIFF/SCN CRITERIA = MDIFF) - XR CHEST 1 [id number] 14:23:00 [facility] 2000 [facility]: [facility]: [facility] 2000 Age/S: 19 / M [id number] Unit #: [id number] Loc: [place] [address] Phys: Shelley Thompson Acct: [id number] Dis Date: Status: REG ER PHONE #: [phone] Exam Date: 07/04/2020 1410 FAX #: Reason: Seizure, fall down stairs EXAMS: CPT: [id number] XR CHEST 1 V 66971 Fluoro Time: DAP (Gy m2): Air Kerma (mGy): Site ID: [id number] HISTORY: Seizure, fall down stairs FINDINGS: The lungs are clear and normally expanded. The heart and pulmonary vasculature is normal. Osseous structures are unremarkable. IMPRESSION: Negative chest X-ray. at 1423 Reported and signed by: Sundar Rubio M.D. CC: Shelley BAUTISTA PAGE 1 Signed Report Name: BJ BETTENCOURT [place] : 2000 Age/S: 19 / M [id number] Unit #: [id number] Loc: [place] [address] Phys: Shelley Thompson Acct: [id number] Dis Date: Status: REG ER PHONE #: [phone] Exam Date: 07/04/20201409 FAX #: Reason: Seizure, fall down stairs EXAMS: CPT: [id number] XR CHEST 1 V 91939 Fluoro Time: DAP (Gy m2): Air Kerma (mGy): <Continued> Technologist: Karyn Thayer, RT(R)(CT); ... Trnscb Date/Time: 07/04/2020 (7008) [email or web address] Orig Print D/T: S: 07/04/2020 (5346) PAGE 2 Signed Report- CT C-SPINE W/O [id number] 14:22:00 [facility] : 2000 Sex: M Name: BJ BETTENCOURT V [facility] : 2000 Age/S: 19 / M [id number] Unit #: [id number] Loc: [place] [address] Phys: Shelley Thompson Acct: [id number] Dis Date: Status: REG ER PHONE #: [phone] Exam Date: 07/04/20201409 FAX #: Reason: Seizure, fall down stairs EXAMS: CPT: [id number] CT C-SPINE W/O CONT 22894 SiteID: [id number] CT head TECHNIQUE: CT examination of the brain was performed without contrast on a helical scanner. Scanning conducted from skull base to vertex in the axial plane acquiring 5mm slice thickness. Coronal and sagittal two-dimensional reformatted imaging performed. CT dose lowering technique utilized, with adjustment of MA/kV according to patient size and automated exposure control. CLINICAL HISTORY: Seizure, fall down stairs, head injury FINDINGS: No mass-effect, midline shift, extra-axial fluid collections or intracranial hemorrhage is seen. A small focus of chronic ap pearing hypodensity is present within the left lateral basal ganglia. There is no evidence for acute parenchymal infarct. The bony calvarium and visualized paranasal sinuses are normal. No focal soft tissue swelling or scalp hematoma. IMPRESSION: No acute intracranial finding CT cervical spine TECHNIQUE: CT examination of the cervical spine without contrast was performed on a helical scanner without contrast with coronal and sagittal reformatted imaging obtained. Scanning conducted in axial plane from skull base down to upper thoracic spine. 1.25mm slice thickness acquired. CT dose lowering technique utilized, with adjustment of MA/kV according to patientsize and automated exposure control. CLINICAL HISTORY: Seizure, fall down stairs PAGE 1 Signed Report (CONTINUED) Name: BJ BETTENCOURT V [facility] : 2000 Age/S: 19 / M [id number] Unit #: [id number] Loc: [place] [address] Phys: Shelley Thompson Acct: [id number] Dis Date: Status: REG ER PHONE #: [phone] Date: 07/04/2020 1410 FAX #: Reason: Seizure, fall down stairs EXAMS: CPT: [id number] C-SPINE W/O CONT 98040 <Continued> FINDINGS: Normal cervical lordosis. No acute fracture or subluxation. Prevertebral soft tissues appear unremarkable. The atlantoaxial joint is unremarkable. The visualized lung apices are normal. IMPRESSION: No acute fracture or subluxation of the cervical spine. at 1422 Reported and signed by: Sundar Rubio M.D. CC: Shelley BAUTISTA Technologist:Karyn Thayer, RT(R)(CT); .. CTDI: DLP: Trnscb Date/Time: 07/04/2020 (1422) [email or web address] Orig Print D/T: S: 07/04/2020 (1420) PAGE 2 Signed Report- CT HEAD/BRAIN W/O [id number] 14:22:00 [facility] : 2000 Sex: M Name: BJ BETTENCOURT V [facility] : 2000 Age/S: 19 / M [id number] Unit #: [id number] Loc: [place] [address] Phys: Shelley Thompson Acct: [id number] Dis Date: Status: REG ER PHONE #: [phone] Exam Date: 07/04/2020 1409 FAX #: Reason: Seizure, fall down stairs with head injury EXAMS: CPT: [id number] CT HEAD/BRAIN W/O CONT 05229 SiteID: [id number] CT head TECHNIQUE: CT examination of the brain was performed without contrast on a helical scanner. Scanning conducted from skull base to vertex in the axial plane acquiring 5mm slice thickness. Coronal and sagittal two-dimensional reformatted imaging performed. CT dose lowering technique utilized, with adjustment of MA/kV according to patient size and automated exposure control. CLINICAL HISTORY: Seizure, fall down stairs, head injury FINDINGS: No mass-effect, midline shift, extra-axial fluid collections or intracranial hemorrhage is seen. A small focus of chronic ap pearing hypodensity is present within the left lateral basal ganglia. There is no evidence for acute parenchymal infarct. The bony calvarium and visualized paranasal sinuses are normal. No focal soft tissue swelling or scalp hematoma. IMPRESSION: No acute intracranial finding CT cervical spine TECHNIQUE: CT examination of the cervical spine without contrast was performed on a helical scanner without contrast with coronal and sagittal reformatted imaging obtained. Scanning conducted in axial plane from skull base down to upper thoracic spine. 1.25mm slice thickness acquired. CT dose lowering technique utilized, with adjustment of MA/kV according to patientsize and automated exposure control. CLINICAL HISTORY: Seizure, fall down stairs PAGE 1 Signed Report (CONTINUED) Name: BJ BETTENCOURT [place] : 2000 Age/S: 19 / M [id number] Unit #: [id number] Loc: [place] [address] Phys: Shelley Thompson Acct: [id number] Dis Date: Status: REG ER PHONE #: [phone] Date: 07/04/2020 0431 FAX #: Reason: Seizure, fall down stairs with head injury EXAMS: CPT: [id number] HEAD/BRAIN W/O CONT 71872 <Continued> FINDINGS: Normal cervical lordosis. No acute fracture or subluxation. Prevertebral soft tissues appear unremarkable. The atlantoaxial joint is unremarkable. The visualized lung apices are normal. IMPRESSION: No acute fracture or subluxation of the cervical spine. at 1422 Reported and signed by: Sundar Rubio M.D. CC: Shelley BAUTISTA Technologist:Karyn Thayer, RT(R)(CT); .. CTDI: DLP: Trnscb Date/Time: 07/04/2020 (1422) [email or web address] Orig Print D/T: S: 07/04/2020 (2952) PAGE 2 Signed Report
[2020-09-17 23:11] LABS: Absolute Lymphocytes (CBC) 1.8 K/uL (0.7-4.9); Basophils % 0.3 % (0-1.3); Hematocrit 44.7 % (39.6-49.0); Lymphocytes % 22.5 % (15.3-44.8); MPV 8.3 fL (7.6-11.3); RBC Red Blood Cell Count 5.02 M/uL (4.33-5.43)
[2020-09-17 23:23] LABS: Protime INR 1.1
[2020-09-17] MEDS ORDERED: NA CHLORIDE 0.9% 1,000 ML ONE (23:23)
[2020-09-17 23:36] LABS: ALT/SGPT 16 U/L (12-78); AST/SGOT 15 U/L (15-37); Albumin 3.9 g/dL (3.4-5.0); Alkaline Phosphatase 55 U/L (45-117); BUN Blood Urea Nitrogen 11 mg/dL (7-18); Bicarbonate 27 mmol/L (21-32); Bilirubin Direct 0.2 mg/dL (0-0.2); Glucose Level 129 mg/dL (74-106); Potassium 3.3 mmol/L (3.5-5.1); Protein, Total 6.9 g/dL (6.4-8.2); Sodium Level 143 mmol/L (136-145)
--- NOTE | 2020-09-18 00:22 | EDPHYS ---
Physician Documentation [facility] Name: El Cartwright Age: 19 yrs Sex: Male : 2000 Arrival Date: 09/17/2020 Time: 22:56 Bed 3 Private MD: ED Physician Parker Gutierrez HPI: 09/17 23:12 This 19 yrs old Male presents to ER via EMS with complaints of overdose. rn 23:12 The patient presents to the emergency department after a known overdose. Context: rn Method: the patient has a confirmed or suspected ingestion, Time: the patient's OD/poisoning occurred at an unknown time, Extent: and was witnessed by family, Previous OD/poisoning history: yes. Associated signs and symptoms: Pertinent negatives: auditory hallucinations, diaphoresis, loss of consciousness, shortness of breath. Severity of symptoms: At their worst the symptoms were severe in the emergency department the symptoms have improved. The patient has experienced a previous episode. The patient has not recently seen a physician. Reports took 2 "marily", which he states is 30mg oxycodone, and 5 2mg xanax, recreational, was unresponsive, given narcan by EMS, reports bystander did chest compressions but unsure if ever lost pulse. Feels better now. . Historical: - Allergies: 23:01 No Known Allergies; bb - Home Meds: 23:01 None [Active]; bb - PMHx: 23:01 Bipolar disorder; RLS; sleeping disorder; bb - PSHx: 23:01 external fixator femur fracture; bb - Immunization history:: Adult Immunizations unknown. - Social history:: Smoking status: Patient reports the use of cigarette tobacco products, smokes one pack cigarettes per day. - Family history:: not pertinent. - Hospitalizations: : No recent hospitalization is reported. ROS: 23:21 Constitutional: Negative for fever, chills, and weight loss, Eyes: Negative for injury, rn pain, redness, and discharge, Neck: Negative for injury, pain, and swelling, Cardiovascular: Negative for chest pain, palpitations, and edema, Respiratory: Negative for shortness of breath, cough, wheezing, and pleuritic chest pain, Abdomen/GI: Negative for abdominal pain, nausea, vomiting, diarrhea, and constipation, Back: Negative for injury and pain, MS/Extremity: Negative for injury and deformity, Skin: Negative for injury, rash, and discoloration, Neuro: Negative for headache, weakness, numbness, tingling, and seizure. 23:21 All other systems are negative. Exam: 23:21 Constitutional: This is a well developed, well nourished patient who is awake, rn slightly somnolent but answering all questions Head/Face: Normocephalic, atraumatic. Eyes: Pupils equal round and reactive to light, extra-ocular motions intact. Lids and lashes normal. Conjunctiva and sclera are non-icteric and not injected. Cornea within normal limits. Periorbital areas with no swelling, redness, or edema. Cardiovascular: Regular rate and rhythm. No pulse deficits. Respiratory: No increased work of breathing, no retractions or nasal flaring. Abdomen/GI: soft, non-tender Skin: Warm, dry MS/ Extremity: Pulses equal, no cyanosis. Neuro: Awake, GCS 15. Moves all 4 extremities. Vital Signs: 22:56 BP 119 / 80; Pulse 75; Resp 16; Temp 97.5; Pulse Ox 92% on R/A; Weight 78.47 kg (R); bb Height 5 ft. 10 in. (177.80 cm) (R); Pain 6/10; 23:30 BP 110 / 74; Pulse 67; Resp 22; Pulse Ox 92% on 3 lpm NC; wh 09/18 00:30 BP 100 / 64; Pulse 68; Resp 22; Pulse Ox 92% on 3 lpm NC; wh 01:00 BP 92 / 66; Pulse 59; Resp 22; Pulse Ox 99% on Venturi mask; wh 06:00 BP 107 / 63; Pulse 71; Resp 18; Pulse Ox 99% on R/A; 09/17 22:56 Body Mass Index 24.82 (78.47 kg, 177.80 cm) bb MDM: 09/17 22:56 Patient medically screened. rn 09/18 00:19 Differential diagnosis: Ingestion/exposure to opioids, benzos. Data reviewed: vital rn signs, nurses notes, lab test result(s), EKG, radiologic studies, plain films, and as a result, I will admit patient. Counseling: I had a detailed discussion with the patient and/or guardian regarding: the historical points, exam findings, and any diagnostic results supporting the discharge/admit diagnosis, lab results, radiology results, the need for further work-up and treatment in the hospital. Response to treatment: the patient's symptoms have mildly improved after treatment, and as a result, I will admit patient. Admission orders: after a detailed discussion of the patient's condition and case, the admit orders are written by me. ED course: Pt more awake, per poison control, needs extended observation given extended release of oxycodone, and xray shows bilateral interstitial infiltrate, pulmonary edema vs aspiration, will cover with abx and admit. O2 92%. COVID ordered.. 00:44 ED course: Pt denies suicidal ideation or suicide attempt. rn 09/17 22:58 Order name: Acetaminophen rn 09/17 22:58 Order name: Basic Metabolic Panel rn 09/17 22:58 Order name: CBC with Diff rn 09/17 22:58 Order name: ETOH Level; Complete Time: 23:46 09/17 22:58 Order name: Hepatic Function; Complete Time: 23:46 09/17 22:58 Order name: PT-INR; Complete Time: 23:46 rn 09/17 22:58 Order name: Ptt, Activated; Complete Time: 23:46 rn 09/17 22:58 Order name: Salicylate; Complete Time: 23:46 rn 09/17 22:58 Order name: Urine Drug Screen rn 09/17 22:58 Order name: Acetaminophen Level; Complete Time: 23:46 EDND 09/17 22:58 Order name: Basic Metabolic Panel; Complete Time: 23:46 EDND 09/17 22:58 Order name: CBC with Automated Diff; Complete Time: 23:46 EDND 09/17 23:37 Order name: Glucose, Ancillary Testing; Complete Time: 23:46 EDND 09/18 00:19 Order name: COVID-19 : Document "Date of Symptom Onset" if Symptomatic. rn 09/17 22:58 Order name: EKG; Complete Time: 22:58 rn 09/17 22:58 Order name: EKG - Nurse/Tech; Complete Time: 23:16 rn 09/17 22:58 Order name: IV Saline Lock; Complete Time: 23:16 rn 09/17 22:58 Order name: Labs collected and sent; Complete Time: 23:16 rn 09/17 22:59 Order name: Glucose Level; Complete Time: 23:16 rn 09/17 23:14 Order name: XRAY Chest (1 view) rn 09/18 00:19 Order name: CORONAVIRUS EDMS 09/18 01:01 Order name: CONS Physician Consult EDMS 09/18 01:57 Order name: SARS-COV-2 RT PCR EDND Administered Medications: 09/17 23:07 Drug: NS 0.9% 1000 ml Route: IV; Rate: 1000 ml; Site: right antecubital; 09/18 04:04 Follow up: Response: No adverse reaction; IV Status: Completed infusion 00:34 Drug: Zosyn 3.375 grams Route: IVPB; Infused Over: 60 mins; Site: right antecubital; 04:04 Follow up: Response: No adverse reaction; IV Status: Completed infusion Disposition: 09/18/20 00:21 Hospitalization ordered by Nick Chester for Inpatient Admission. Preliminary diagnosis are Opioid abuse with intoxication - Overdose, Aspiration pneumonitis, Hypoxemia. - Bed requested for RUST ER HOLD. - Status is Inpatient Admission. - Condition is Stable. - Problem is new. - Symptoms have improved. Signatures: Dispatcher [facility] Love Blakely RN RN mw Ballard, Brenda, RN RN bb Nieto, Roman, MD MD rn Habalo, Winsy, RN RN Corrections: (The following items were deleted from the chart) 00:42 00:21 Hospitalization Ordered by Nick Chesetr for Inpatient Admission. Preliminary diagnosis is Opioid abuse with intoxication - Overdose; Aspiration pneumonitis; Hypoxemia. Bed requested for Telemetry/MedSurg (observation). Status is Inpatient Admission. Condition is Stable. Problem is new. Symptoms have improved. rn 06:12 00:42 09/18/2020 00:21 Hospitalization Ordered by Nick Chester for Inpatient Admission. Preliminary diagnosis is Opioid abuse with intoxication - Overdose; Aspiration pneumonitis; Hypoxemia. Bed requested for RUST ER HOLD. Status is Inpatient Admission. Condition is Stable. Problem is new. Symptoms have improved. mw
--- NOTE | 2020-09-18 00:22 | ER ---
Nurse's Notes [facility] Name: El Cartwright Age: 19 yrs Sex: Male : 2000 Arrival Date: 09/17/2020 Time: 22:56 Bed 3 Private MD: Diagnosis: Opioid abuse with intoxication-Overdose;Aspiration pneumonitis;Hypoxemia Presentation: 09/17 22:56 Chief complaint: EMS states: they were toned out for report of pt unresponsive mother bb was doing CPR they gave narcan and pt became responsive. Coronavirus screen: At this time, the client does not indicate any symptoms associated with coronavirus-19. Ebola Screen: No symptoms or risks identified at this time. Initial Sepsis Screen: Does the patient meet any 2 criteria? No. Patient's initial sepsis screen is negative. Does the patient have a suspected source of infection? No. Patient's initial sepsis screen is negative. Risk Assessment: Do you want to hurt yourself or someone else? Patient reports no desire to harm self or others. Onset of symptoms was September 17, 2020. 22:56 Method Of Arrival: EMS: [facility] bb 22:56 Acuity: ELIZABETH 2 bb 23:03 Note pt admits to taking oxycodone 30 mg x 2 tabs and xanax 2 mg x 5 tabs. Care prior bb to arrival: Medication(s) given: Narcan 6 mg and NS 250 mLs IV initiated. 16 g R AC Glucose check: 191 Oxygen administered. via a non-rebreather mask. Historical: - Allergies: 23:01 No Known Allergies; bb - Home Meds: 23:01 None [Active]; bb - PMHx: 23:01 Bipolar disorder; RLS; sleeping disorder; bb - PSHx: 23:01 external fixator femur fracture; bb - Immunization history:: Adult Immunizations unknown. - Social history:: Smoking status: Patient reports the use of cigarette tobacco products, smokes one pack cigarettes per day. - Family history:: not pertinent. - Hospitalizations: : No recent hospitalization is reported. Screenin:11 Abuse screen: Denies threats or abuse. Denies injuries from another. Nutritional wh screening: No deficits noted. Tuberculosis screening: No symptoms or risk factors identified. Fall Risk Fall in past 12 months (25 points). Assessment: 23:05 General: Appears in no apparent distress. Behavior is drowsy. Pain: Denies pain. Neuro: wh Level of Consciousness is awake, alert, obeys commands, lethargic, Oriented to person, place, time, situation. Cardiovascular: Heart tones S1 S2. Respiratory: Airway is patent Respiratory effort is even, unlabored, Respiratory pattern is regular. GI: Abdomen is flat, non-distended. : No signs and/or symptoms were reported regarding the genitourinary system. EENT: No signs and/or symptoms were reported regarding the EENT system. Derm: Skin is intact, is healthy with good turgor, Skin is pink, warm \T\ dry. normal. Musculoskeletal: Circulation, motion, and sensation intact. 23:48 Reassessment: Spoke with Poin control with recommendation of supportive care and monitoring for a few hours, monitor for S/Sx of respiratory depression, notified MD. 09/18 00:15 Reassessment: Patient appears in no apparent distress at this time. No changes from previously documented assessment. Patient and/or family updated on plan of care and expected duration. Pain level reassessed. Patient is alert, oriented x 3, equal unlabored respirations, skin warm/dry/pink. 01:15 Reassessment: Provider at bedside explaining POC need for admit. 01:30 Reassessment: Patient appears in no apparent distress at this time. Patient and/or family updated on plan of care and expected duration. Pain level reassessed. Patient is alert, oriented x 3, equal unlabored respirations, skin warm/dry/pink. 04:44 Reassessment: updated Poison Control . 06:00 Reassessment: Patient appears in no apparent distress at this time. Patient and/or family updated on plan of care and expected duration. Pain level reassessed. Patient is alert, oriented x 3, equal unlabored respirations, skin warm/dry/pink. Pt wanting to go AMA, MD Gutierrez had a lengthy talk with Pt in regards why he needs to stay, Pt still opting to sign AMA, Notified Hospitalist Jamal. Vital Signs: 09/17 22:56 BP 119 / 80; Pulse 75; Resp 16; Temp 97.5; Pulse Ox 92% on R/A; Weight 78.47 kg (R); bb Height 5 ft. 10 in. (177.80 cm) (R); Pain 6/10; 23:30 BP 110 / 74; Pulse 67; Resp 22; Pulse Ox 92% on 3 lpm NC; wh 09/18 00:30 BP 100 / 64; Pulse 68; Resp 22; Pulse Ox 92% on 3 lpm NC; 01:00 BP 92 / 66; Pulse 59; Resp 22; Pulse Ox 99% on Venturi mask; 06:00 BP 107 / 63; Pulse 71; Resp 18; Pulse Ox 99% on R/A; 09/17 22:56 Body Mass Index 24.82 (78.47 kg, 177.80 cm) ED Course: 09/17 22:56 Patient arrived in ED. rn 22:56 Parker Gutierrez MD is Attending Physician. rn 22:56 Marlene Bess, NING is Primary Nurse. 23:00 Triage completed. 23:01 Arm band placed on Patient placed in an exam room, on a stretcher, on oxygen, on pulse bb oximetry. 23:12 Patient has correct armband on for positive identification. Placed in gown. Bed in low wh position. Call light in reach. Side rails up X 1. monitoring manager on. Pulse ox on. NIBP on. 23:12 Maintain EMS IV. Dressing intact. Good blood return noted. Site clean \T\ dry. Gauge \T\ site: 16 RAC. 23:34 XRAY Chest (1 view) In Process Unspecified. EDTX 09/18 00:21 Nick Chester is Hospitalizing Provider. rn 01:00 Patient admitted, IV remains in place. 01:00 No provider procedures requiring assistance completed. Administered Medications: 09/17 23:07 Drug: NS 0.9% 1000 ml Route: IV; Rate: 1000 ml; Site: right antecubital; 09/18 04:04 Follow up: Response: No adverse reaction; IV Status: Completed infusion 00:34 Drug: Zosyn 3.375 grams Route: IVPB; Infused Over: 60 mins; Site: right antecubital; 04:04 Follow up: Response: No adverse reaction; IV Status: Completed infusion Outcome: 00:21 Decision to Hospitalize by Provider. rn 01:00 Admitted to ER Hold. Please see [facility] for further documentation. 01:00 Condition: stable 01:00 Instructed on the need for admit. 06:03 AMA AMA form signed 06:03 Condition: stable 06:03 Instructed on the need for admit. 06:12 Patient left the ED. Signatures: Dispatcher [employer] EDEdilia Herrera RN RN Parker De MD MD rn Habalo, Winsy, RN RN Corrections: (The following items were deleted from the chart) 09/17 23:02 22:56 BP 119 / 80; Pulse 75bpm; Resp 16bpm; Pulse Ox 92% RA; 78.47 kg Reported; Height bb 5 ft. 10 in. Reported; BMI: 24.8; Pain 6/10; bb 09/18 04:01 01:00 Admitted to ER Hold. Please see [facility] for further documentation. [facility] 04:01 01:00 Condition: stable [facility] 04:01 01:00 Instructed on the need for admit, [facility]
[2020-09-18] MEDS ORDERED: PIPER/TAZO/NS 3.375gm 3.375 GM/100 ML BAG ONE (00:44)
[2020-09-18] MEDS ORDERED: ONDANSETRON 4 MG/2 ML VIAL IV PRN (01:23)
[2020-09-18] MEDS ORDERED: NALOXONE 0.4 MG/ML VIAL IV PRN (01:23)
[2020-09-18] MEDS ORDERED: NA CHLORIDE 0.9% 1,000 ML IV SCH (03:00)
[2020-09-18 04:50] VITALS: BMI 24.8
--- NOTE | 2020-09-18 04:54 | P.HP ---
Certification for Inpatient Patient admitted to: Observation With expected LOS: <2 Midnights Patient will require the following post-hospital care: None Practitioner: I am a practitioner with admitting privileges, knowledge of patient current condition, hospital course, and medical plan of care. Services: Services provided to patient in accordance with Admission requirements found in Title 42 Section 412.3 of the Code of Federal Regulations <Andrews Berry - Last Filed: 09/18/20 05:44> Patient History Date of Service: 09/18/20 Reason for admission: opioid overdose History of Present Illness: Mr. Cartwright is a 19 yo male with history of depression, anxiety, and opioid substance use here today for overdose. He was found unresponsive by his mother and given chest compressions until EMS arrived - EMS unsure whether or not he ever lost a pulse. Was given narcan on arrival. He's somnolent but able to answer questions. Reports he is just fatigued, in no pain. He says he took Roxicodone and Xanax. He says he has never overdose before, but chart review reveals two previous SI attempts. Currently has no thoughts of suicidal ideation or homicidal ideation. Congested and with crackles on lung exam, CXR showed mild diffuse pulmonary hazy opacification. Received piptazo and fluids in the ER. Currently sats 100% on venturi mask. Poison control recommends that he is observed for another 12 hours due to taking ER oxycodone. - Past Medical/Surgical History Has patient received pneumonia vaccine in the past: No Diabetic: No -: depression -: anxiety -: R femur - Social History Smoking Status: Current every day smoker Counseled patient to stop smoking for: less than 10 minutes Smoking therapy provided: No Patient receptive to therapy: No Alcohol use: Yes CD- Drugs: Yes Caffeine use: No Place of Residence: Home <Andrews Berry - Last Filed: 09/18/20 05:44> Date of Service: 09/18/20 <shama gan - Last Filed: 09/18/20 15:23> Allergies No Known Allergies Allergy (Verified 09/18/20 01:23) Review of Systems General: As per HPI Eyes: Unremarkable ENT: Nose Congestion, As per HPI Respiratory: Shortness of Breath, As per HPI Cardiovascular: Unremarkable Gastrointestinal: Unremarkable Genitourinary: Unremarkable Musculoskeletal: Unremarkable Integumentary: Unremarkable Neurological: As per HPI Lymphatics: Unremarkable <Andrews Berry - Last Filed: 09/18/20 05:44> Physical Examination - Vital Signs Temperature: 97.5 F Blood Pressure: 119/80 Pulse: 75 Respirations: 16 Pulse Ox (%): 92 - Physical Exam General: Oriented x3, Cooperative HEENT: Atraumatic, Normocephalic, PERRLA, Mucous membr. moist/pink, EOMI, Sclerae nonicteric Neck: Supple, 2+ carotid pulse no bruit, JVD not distended, No Thyromegaly, No LAD Respiratory: Normal air movement, Crackles/rales Cardiovascular: No edema, Normal pulses, Regular rate/rhythm, Normal S1 S2, No gallops, No rubs, No murmurs Capillary refill: <2 Seconds Gastrointestinal: Normal bowel sounds, Soft and benign, Non-distended, No ascites, No tenderness, No masses, No rebound, No guarding Musculoskeletal: No clubbing, No swelling, No contractures, No erythema, No tenderness, No warmth Integumentary: No rashes, No breakdown, No significant lesion, No tenderness/swelling, No erythema, No warmth, No cyanosis Neurological: Normal speech, Sensation intact Lymphatics: No axilla or inguinal lymphadenopathy - Studies Laboratory Data (last 24 hrs) 09/17/20 23:00: PT 12.7 H, INR 1.10, APTT 28.0 09/17/20 23:00: WBC 8.00, Hgb 14.8, Hct 44.7, Plt Count 187 09/17/20 23:00: Sodium 143, Potassium 3.3 L, BUN 11, Creatinine 1.13, Glucose 129 H, Total Bilirubin 1.0, AST 15, ALT 16, Alkaline Phosphatase 55 <Luzmaria Berryan S - Last Filed: 09/18/20 05:44> - Studies Laboratory Data (last 24 hrs) 09/17/20 23:00: PT 12.7 H, INR 1.10, APTT 28.0 09/17/20 23:00: WBC 8.00, Hgb 14.8, Hct 44.7, Plt Count 187 09/17/20 23:00: Sodium 143, Potassium 3.3 L, BUN 11, Creatinine 1.13, Glucose 129 H, Total Bilirubin 1.0, AST 15, ALT 16, Alkaline Phosphatase 55 <shama gan - Last Filed: 09/18/20 15:23> Assessment and Plan - Problems (Diagnosis) (1) Opioid overdose Status: Acute Plan: will continue to monitor per poison control recommendations. continue with IV fluids. monitor respiratory rate. PRN narcan ordered. Qualifiers: Encounter type: initial encounter Injury intent: accidental or unintentional Qualified Code(s): T40.2X1A - Poisoning by other opioids, accidental (unintentional), initial encounter (2) Aspiration pneumonitis Status: Acute Plan: CXR showed mild diffuse pulmonary hazy opacification. patient with congestion and crackles on exam. pulm consulted. Discharge Plan: Home Plan to discharge in: 24 Hours - Advance Directives Does patient have a Living Will: No Does patient have a Durable POA for Healthcare: No - Code Status/Comfort Care Code Status Assessed: Yes (full code) Critical Care: No Time Spent Managing Pts Care (In Minutes): 70 <Andrews Berry - Last Filed: 09/18/20 05:44> Physician Review Additional Text: I did not get the chance to see the patient. I am told he signed out against medical advice in the emergency department. <shama gan - Last Filed: 09/18/20 15:23>
[2020-09-18 05:00] VITALS: TEMP 97.5
[2020-09-18] MEDS ORDERED: NA CHLORIDE 0.9% 1,000 ML ONE (05:13)
[2020-09-18 06:26] VITALS: BP 107/63; O2SAT 99
[2020-09-18] MEDS ORDERED: ENOXAPARIN 40 MG/0.4 ML SQ SCH (09:00)
--- NOTE | 2020-09-18 10:22 | EKG ---
Test Date: 2020-09-17 Test Time: 23:17:04 Reliability Engineer: MORGAN MEASUREMENT RESULTS: Intervals: Rate: 63 NC: 160 QRSD: 102 QT: 412 QTc: 421 [place]: P: 47 NC: 160 QRS: 81 T: 48 INTERPRETIVE STATEMENTS: Normal sinus rhythm Normal ECG Compared to ECG 05/17/2020 09:16:44 No significant changes Electronically Signed On 09-18-20 10:21:15 CDT by Dez Akhtar
--- NOTE | 2020-09-19 16:26 | RAD REPORT ---
EXAM DESCRIPTION: RAD - Chest Single View - 09/17/2020 11:34 pm CLINICAL HISTORY: Overdose. COMPARISON: None. TECHNIQUE: Single view AP chest radiograph(s). FINDINGS: Mild disuse pulmonary hazy opacification. No pleural effusion. No pneumothorax. Nonenlarge d cardiomediastinal silhouette. No significant osseous abnormality. IMPRESSION: Mild disuse pulmonary hazy opacification. Correlate for mild pulmonary edema. Electronically signed by: Shona Kennedy MD 09/17/2020 11:43 PM TRACTOR EXPERT Due to temporary technical issues with the PACS/Fluency reporting system, reports are being signed by the in house radiologists without review as a courtesy to insure prompt reporting. The interpreting radiologist is fully responsible for the content of the report.
== END 2020-09-18 06:13 | disposition left against medical advice (07) ==
LOC: ER 22:53 → ERHOLD 09-18 01:04
PROVIDERS: ADMIT Internal Medicine; ATTEND Internal Medicine
DX: T40.2X1A Poisoning by other opioids, accidental (unintentional), initial encounter (principal); J69.0 Pneumonitis due to inhalation of food and vomit; F41.9 Anxiety disorder, unspecified; F31.9 Bipolar disorder, unspecified; G25.81 Restless legs syndrome; F17.210 Nicotine dependence, cigarettes, uncomplicated; Z20.822 Contact with and (suspected) exposure to COVID-19
CPT/HCPCS: 36415; 71045; 80048; 80076; 80320; 80329; 82947; 85025; 85610; 85730; 93005; 96361; 96365; 96366; 99285; G0378; J2543; J7030; U0003

== ENCOUNTER 2020-12-15 09:20 | Emergency (ER) | payer SELFPAY ==
--- OUTSIDE RECORDS SUMMARY | 2020-12-15 09:22 | XMS REPORT | Continuity of Care Document ---
:2000 Author Organization [facility] t Address [address] [place] [address] Care Team Providers Name Role Phone Unavailable Unavailable Unavailable Payers Payer Name Policy Type Policy Number Effective Date Expiration Date S ource Problems This patient has no known problems. Allergies, Adverse Reactions, Alerts Allergy Allergy Status Severity Reaction(s) Onset Inactive Treating Comm ents Source Name Type Date Date Clinician No Known DA Active U 2019-07 [facility] All[facility]ie 09-04 [facility] s 00:00: d 00 [facility] Medications This patient has no known [...] 8.5-10.1 N Completed by Nursing: NOHEPATIC FUNCTION [id number] 14:48:00 Test Item Value Reference Range Interpretation [...] Unit/L 26-192 N CK) Completed by Nursing: [id number] 14:48:00 Test Item Value Reference Range Interpretation [...] may dana yby method. Completed by Nursing: [id number] 14:48:00 Test Item Value Reference Range Interpretation Comments ALCOHOL (test code = ALC) < 3 MG/DL 0-10 N Completed by Nursing: NOCBC W/AUTO [id number] 14:44:00 Test Item Value Reference Range Interpretation [...] CRITERIA = MDIFF) - XR CHEST 1 [id number] 14:23:00 [facility] : 2000 Sex: M Name: BJ BETTENCOURT V [facility] : 2000 Age/S: 19 / M [id number] Unit #: [id number] Loc: [place] [address] Phys: Shelley Thompson Acct: [id number] Dis Date: Status: REG ER PHONE #: [phone] Exam Date: 07/04/2020 1410 FAX #: Reason: Seizure, fall down stairs EXAMS: CPT: [id number] XR CHEST 1 V 19696 Fluoro Time: DAP (Gy m2): Air Kerma (mGy): Site ID: [id number] HISTORY: Seizure, fall down stairs FINDINGS: The lungs are clear and normally expanded. The heart and pulmonary vasculature is normal. Osseous structures are unremarkable. IMPRESSION: Negative chest X-ray. at 1423 Reported and signed by: Sundar Rubio M.D. CC: Shelley BAUTISTA PAGE 1 Signed Report Name: BJ BETTENCOURT [facility] : 2000 Age/S: 19 / M [address] Unit #: [id number] Loc: [place] [address] Phys: Shelley Thompson Acct: [id number] Dis Date: Status: REG ER PHONE #: [phone] Exam Date: 07/04/20200 FAX #: Reason: Seizure, fall down stairs EXAMS: CPT: [id number] XR CHEST 1 V 44305 Fluoro Time: DAP (Gy m2): Air Kerma (mGy): <Continued> Technologist: Karyn Thayer, RT(R)(CT); ... Trnscb Date/Time: 07/04/2020 (6372) [email or web address] Orig Print D/T: S: 07/04/2020 (9805) PAGE 2 Signed Report- CT C-SPINE W/O [id number] 14:22:00 [facility] : 2000 Sex: M Name: BJ BETTENCOURT V [facility] : 2000 Age/S: 19 / M [id number] Unit #: [id number] Loc: [place] [address] Phys: Shelley Thompson Acct: [id number] Dis Date: Status: REG ER PHONE #: [phone] Exam Date: 07/04/2020 1410 FAX #: Reason: Seizure, fall down stairs EXAMS: CPT: [id number] CT C-SPINE W/O CONT 22048 SiteID: [id number] CT head TECHNIQUE: CT examination [...] Signed Report (CONTINUED) Name: BJ BETTENCOURT V [facility] : 2000 Age/S: 19 / M [address] Unit #: [id number] Loc: [place] [address] Phys: Shelley Thompson Acct: [id number] Dis Date: Status: REG ER PHONE #: [phone] Date: 07/04/2020 1410 FAX #: Reason: Seizure, fall down stairs EXAMS: CPT: [id number] C-SPINE W/O CONT 74254 <Continued> FINDINGS: Normal cervical lordosis. No acute fracture or subluxation. Prevertebral soft tissues appear unremarkable. The atlantoaxial joint is unremarkable. The visualized lung apices are normal. IMPRESSION: No acute fracture or subluxation of the cervical spine. at 1422 Reported and signed by: Sundar Rubio M.D. CC: Shelley BAUTISTA Technologist:Karyn Thayer, RT(R)(CT); .. CTDI: DLP: Trnscb Date/Time: 07/04/2020 (1422) [email or web address] Orig Print D/T: S: 07/04/2020 (1423) PAGE 2 Signed Report- CT HEAD/BRAIN W/O [id number] 14:22:00 [facility] : 2000 Sex: M Name: BJ BETTENCOURT V [facility] : 2000 Age/S: 19 / M [address] Unit #: [id number] Loc: [place] [address] Phys: Shelley Thompson Acct: [id number] Dis Date: Status: REG ER PHONE #: [phone] Exam Date: 07/04/2020 1408 FAX #: Reason: Seizure, fall down stairs with head injury EXAMS: CPT: [id number] CT HEAD/BRAIN W/O CONT 35298 SiteID: [id number] CT head TECHNIQUE: CT examination [...] 1 Signed Report (CONTINUED) Name: BJ BETTENCOURT Prim[place] : 2000 Age/S: 19 / M [address] Unit #: [id number] Loc: [place] [address] Phys: Shelley Thompson Acct: [id number] Dis Date: Status: REG ER PHONE #: [phone] Date: 07/04/2020 8174 FAX #: Reason: Seizure, fall down stairs with head injury EXAMS: CPT: [id number] HEAD/BRAIN W/O CONT 64320 <Continued> FINDINGS: Normal cervical lordosis. No acute [...] (1422) [email or web address] Orig Print D/T: S: 07/04/2020 (0962) PAGE 2 Signed Report
[2020-12-15 10:29] LABS: Absolute Lymphocytes (CBC) 1.3 K/uL (0.7-4.9); Basophils % 0.4 % (0-1.3); Hematocrit 46.7 % (39.6-49.0); Lymphocytes % 16.4 % (15.3-44.8); RBC Red Blood Cell Count 5.24 M/uL (4.33-5.43)
[2020-12-15] MEDS ORDERED: NA CHLORIDE 0.9% 1,000 ML ONE (10:29)
--- NOTE | 2020-12-15 10:36 | RAD REPORT ---
EXAM DESCRIPTION: CT - Head Brain Wo Cont - 12/15/2020 10:28 am CLINICAL HISTORY: Confused;Headache Headache, drowsiness COMPARISON: Head Brain Wo Cont dated 05/17/2020 TECHNIQUE: All CT scans are performed using dose optimization technique as appropriate and may inclu de automated exposure control or mA/KV adjustment according to patient size. FINDINGS: No intracranial hemorrhage, hydrocephalus or extra-axial fluid collection.No areas of brai n edema or evidence of midline shift. The paranasal sinuses and mastoids are clear. The calvarium is intact. IMPRESSION: No acute intracranial abnormality.
[2020-12-15 10:42] LABS: Protime INR 1.16
[2020-12-15 10:56] LABS: ALT/SGPT 28 U/L (12-78); AST/SGOT 55 U/L (15-37); Alkaline Phosphatase 46 U/L (45-117); BUN Blood Urea Nitrogen 11 mg/dL (7-18); Bicarbonate 31 mmol/L (21-32); Bilirubin Direct 0.3 mg/dL (0-0.2); Glucose Level 91 mg/dL (74-106); Potassium 4.2 mmol/L (3.5-5.1); Protein, Total 7.5 g/dL (6.4-8.2); Sodium Level 140 mmol/L (136-145)
--- NOTE | 2020-12-15 12:47 | ER ---
Nurse's Notes [facility] Name: El Cartwright Age: 20 yrs Sex: Male : 2000 Arrival Date: 12/15/2020 Time: 09:20 Bed 24 Private MD: Diagnosis: Adverse effect of unspecified psychotropic drug Presentation: 12/15 09:30 Chief complaint: Patient states: i think i had a seizure yesterday because my friend tw2 from training called me and i didn't know what day it was. i think i hit my head right between my eyes in this concentrated spot. also my lower back and all the way down my legs is really sore. i woke up this morning around 730 and i looked through my text messages from my grandmother and i remembered my past that my dads ashes are on the necklace. i was smoking weed this morning and my friend called me asking me if i was ok. whenever i come off xanax i always have a seizure. i take them because i feel like i have a problem and my doctor and they wont prescribe me the proper medicines. I called Dr. Tono Ramirez and he told me to come here because i told him my head hurt really bad. Coronavirus screen: At this time, the client does not indicate any symptoms associated with coronavirus-19. Ebola Screen: Patient denies travel to an Ebola-affected area in the 21 days before illness onset. Initial Sepsis Screen: Does the patient meet any 2 criteria? No. Patient's initial sepsis screen is negative. Does the patient have a suspected source of infection? No. Patient's initial sepsis screen is negative. Risk Assessment: Do you want to hurt yourself or someone else? Patient reports no desire to harm self or others. Onset of symptoms was December 15, 2020. 09:30 Method Of Arrival: Ambulatory tw2 09:30 Acuity: ELIZABETH 3 tw2 Triage Assessment: 09:38 General: Appears in no apparent distress. Behavior is cooperative. Pain: Complains of tw2 pain in headache and pain right between the eyes. EENT: pupils dilated. Historical: - Allergies: 09:37 No Known Allergies; tw2 - Home Meds: 09:37 Xanax 0.25 mg Oral tab 1 tab 3 times per day [Active]; Percocet Oral [Active]; tw2 - PMHx: 09:37 Bipolar disorder; RLS; sleeping disorder; tw2 - PSHx: 09:37 external fixator femur fracture; tw2 - Immunization history:: Adult Immunizations. - Social history:: Smoking status: Patient reports the use of cigarette tobacco products, smokes one pack cigarettes per day. Patient uses street drugs, cocaine, marijuana. Screenin:02 Abuse screen: Denies threats or abuse. Nutritional screening: No deficits noted. vg1 Tuberculosis screening: No symptoms or risk factors identified. Fall Risk No fall in past 12 months (0 pts). No secondary diagnosis (0 pts). IV access (20 points). Ambulatory Aid- None/Bed Rest/Nurse Assist (0 pts). Gait- Normal/Bed Rest/Wheelchair (0 pts) Mental Status- Oriented to own ability (0 pts). Total Thompson Fall Scale indicates No Risk (0-24 pts). Assessment: 10:00 General: Appears in no apparent distress. comfortable, Behavior is calm, cooperative. vg1 Pain: Complains of pain in nose Pain currently is 3 out of 10 on a pain scale. Pain began 1 day ago. Neuro: Level of Consciousness is awake, alert, obeys commands, Oriented to person, place, time, situation, Pupils are dilated. Cardiovascular: Patient's skin is warm and dry. Respiratory: Airway is patent Respiratory effort is even, unlabored. GI: No signs and/or symptoms were reported involving the gastrointestinal system. : No signs and/or symptoms were reported regarding the genitourinary system. EENT: No signs and/or symptoms were reported regarding the EENT system. Derm: Skin is intact, is healthy with good turgor. Musculoskeletal: Circulation, motion, and sensation intact. 11:14 Reassessment: Patient appears in no apparent distress at this time. No changes from vg1 previously documented assessment. Patient and/or family updated on plan of care and expected duration. Pain level reassessed. Patient is alert, oriented x 3, equal unlabored respirations, skin warm/dry/pink. 12:30 Reassessment: Patient appears in no apparent distress at this time. No changes from vg1 previously documented assessment. Patient and/or family updated on plan of care and expected duration. Pain level reassessed. Patient is alert, oriented x 3, equal unlabored respirations, skin warm/dry/pink. Pt stated unable to give a urine sample, stated 'i dont feel like i can pee' and stated 'i just want to go home now'. Provider notified. Patient states feeling better. 13:18 Reassessment: Patient appears in no apparent distress at this time. No changes from vg1 previously documented assessment. Patient and/or family updated on plan of care and expected duration. Pain level reassessed. Patient is alert, oriented x 3, equal unlabored respirations, skin warm/dry/pink. Patient denies pain at this time. Patient states feeling better. Vital Signs: 09:30 BP 128 / 77; Pulse 67; Resp 18; Temp 98.6(TE); Pulse Ox 100% on R/A; Weight 78.06 kg tw2 (M); Height 5 ft. 10 in. (177.80 cm); Pain 4/10; 10:02 BP 125 / 82; Pulse 73; Resp 16; Pulse Ox 99% on R/A; vg1 11:14 BP 120 / 83; Pulse 57; Resp 16; Pulse Ox 100% on R/A; vg1 12:00 BP 109 / 70; Pulse 60; Resp 16; Pulse Ox 100% on R/A; vg1 09:30 Body Mass Index 24.69 (78.06 kg, 177.80 cm) tw2 ED Course: 09:20 Patient arrived in ED. ds1 09:36 Triage completed. tw2 09:38 Arm band placed on. tw2 09:47 Rolando Gilmore PA is PHCP. cp 09:47 Jeromy Mendoza MD is Attending Physician. cp 09:52 Myah Baxter, NING is Primary Nurse. vg1 10:02 Allergy band placed. Bed in low position. Call light in reach. Side rails up X 1. vg1 10:17 Initial lab(s) drawn, by me, sent to lab. Inserted saline lock: 20 gauge in right vg1 antecubital area, using aseptic technique. Blood collected. 10:28 CT Head Brain wo Cont In Process Unspecified. EDMS 13:18 No provider procedures requiring assistance completed. IV discontinued, intact, vg1 bleeding controlled, No redness/swelling at site. Pressure dressing applied. Administered Medications: 10:33 Drug: NS 0.9% 1000 ml Route: IV; Rate: 1 bolus; Site: right antecubital; vg1 12:30 Follow up: IV Status: Completed infusion; IV Intake: 1000ml vg1 Intake: 12:30 IV: 1000ml; Total: 1000ml. vg1 Outcome: 12:46 Discharge ordered by . cp 13:18 Discharged to home ambulatory. vg1 13:18 Condition: stable 13:18 Discharge instructions given to patient, Instructed on discharge instructions, follow up and referral plans. Demonstrated understanding of instructions, follow-up care. 13:18 Patient left the ED. vg1 Signatures: Dispatcher [employer] EDWA Dana Christiansen ds1 Rolando Gilmore PA PA cp Wise, Tara, RN RN tw2 Myah Baxter RN RN vg1 Corrections: (The following items were deleted from the chart) 12:47 12:30 Reassessment: Patient appears in no apparent distress at this time. No changes vg1 from previously documented assessment. Patient and/or family updated on plan of care and expected duration. Pain level reassessed. Patient is alert, oriented x 3, equal unlabored respirations, skin warm/dry/pink. Patient states feeling better. vg1
--- NOTE | 2020-12-15 12:47 | EDPHYS ---
Physician Documentation [facility] Name: El Cartwright Age: 20 yrs Sex: Male : 2000 Arrival Date: 12/15/2020 Time: 09:20 Bed 24 Private MD: ED Physician Jeromy Mendoza HPI: 12/15 10:00 This 20 yrs old Male presents to ER via Ambulatory with complaints of cp Confusion. 10:00 The patient presents after having a possible seizure episode, patient reports co-worker cp reported he seemed confused yesterday while at work and that he may have had a seizure. Patient reports being tired and sleeping more this morning. Historical: - Allergies: 09:37 No Known Allergies; tw2 - Home Meds: 09:37 Xanax 0.25 mg Oral tab 1 tab 3 times per day [Active]; Percocet Oral [Active]; tw2 - PMHx: 09:37 Bipolar disorder; RLS; sleeping disorder; tw2 - PSHx: 09:37 external fixator femur fracture; tw2 - Immunization history:: Adult Immunizations. - Social history:: Smoking status: Patient reports the use of cigarette tobacco products, smokes one pack cigarettes per day. Patient uses street drugs, cocaine, marijuana. Exam: 10:17 ECG was reviewed by the Attending Physician. Vital Signs: 09:30 BP 128 / 77; Pulse 67; Resp 18; Temp 98.6(TE); Pulse Ox 100% on R/A; Weight 78.06 kg tw2 (M); Height 5 ft. 10 in. (177.80 cm); Pain 4/10; 10:02 BP 125 / 82; Pulse 73; Resp 16; Pulse Ox 99% on R/A; vg1 11:14 BP 120 / 83; Pulse 57; Resp 16; Pulse Ox 100% on R/A; vg1 12:00 BP 109 / 70; Pulse 60; Resp 16; Pulse Ox 100% on R/A; vg1 09:30 Body Mass Index 24.69 (78.06 kg, 177.80 cm) tw2 MDM: 09:50 Patient medically screened. cp 12/15 10:00 Order name: Acetaminophen cp 12/15 10:00 Order name: Basic Metabolic Panel; Complete Time: 11:26 cp 12/15 11:27 Interpretation: Reviewed. cp 12/15 10:00 Order name: CBC with Diff; Complete Time: 11: cp 12/15 11:27 Interpretation: Reviewed. 12/15 10:00 Order name: ETOH Level; Complete Time: : 12/15 11: Interpretation: ETOH < 10; Reviewed. 12/15 10:00 Order name: Hepatic Function; Complete Time: 11: cp 12/15 11:26 Interpretation: Normal except: AST 55; BILID 0.3. 12/15 10:00 Order name: PT-INR; Complete Time: 11: 12/15 11: Interpretation: Abnormal: PT 13.4. 12/15 10:00 Order name: Ptt, Activated; Complete Time: : 12/15 10:00 Order name: Salicylate; Complete Time: : 12/15 10:00 Order name: Urine Drug Screen 12/15 10:00 Order name: EKG; Complete Time: 10:01 12/15 10:00 Order name: EKG - Nurse/Tech; Complete Time: 10:21 12/15 10:00 Order name: CT Head Brain wo Cont; Complete Time: : 12/15 11: Interpretation: Report reviewed. 12/15 10:00 Order name: Acetaminophen Level; Complete Time: 11: EDMS 12/15 10:00 Order name: IV Saline Lock; Complete Time: 10:20 12/15 10:00 Order name: Labs collected and sent; Complete Time: 10:20 12/15 10:00 Order name: Suicide Screening ([place]); Complete Time: 10:04 cp EC:17 Rate is 56 beats/min. Rhythm is regular. GA interval is normal. QRS interval is normal. cp QT interval is normal. T waves are Inverted in lead aVR. Interpreted by me. Reviewed by me. Administered Medications: 10:33 Drug: NS 0.9% 1000 ml Route: IV; Rate: 1 bolus; Site: right antecubital; vg1 12:30 Follow up: IV Status: Completed infusion; IV Intake: 1000ml vg1 Disposition: 12/15/20 12:46 Discharged to Home. Impression: Adverse effect of unspecified psychotropic drug. - Condition is Stable. - Discharge Instructions: What You Need To Know About Illegal Drug Use and Dependence, Youth. - Medication Reconciliation Form, Thank You Letter, Antibiotic Education, Prescription Opioid Use form. - Follow up: Private Physician; When: 1 - 2 days; Reason: Recheck today's complaints. - Problem is new. - Symptoms have improved. Signatures: Dispatcher [employer] EDME Rolando Gilmore PA PA cp Joan Vanessa RN RN tw2 Myah Baxter RN RN vg1 Corrections: (The following items were deleted from the chart) 10:08 10:03 This 20 yrs old Male presents to ER via Ambulatory with complaints of cp Confusion. cp 13:18 12:46 12/15/2020 12:46 Discharged to Home. Impression: Adverse effect of unspecified vg1 psychotropic drug. Condition is Stable. Forms are Medication Reconciliation Form, Thank You Letter, Antibiotic Education, Prescription Opioid Use. Follow up: Private Physician; When: 1 - 2 days; Reason: Recheck today's complaints. Problem is new. Symptoms have improved. cp
[2020-12-15 13:34] VITALS: TEMP 98.6
[2020-12-15 13:37] VITALS: O2SAT 100
[2020-12-15 13:38] VITALS: BP 109/70
== END 2020-12-15 13:18 | disposition home or self-care (01) ==
LOC: ER 09:20
DX: R41.0 Disorientation, unspecified (principal); T43.95XA Adverse effect of unspecified psychotropic drug, initial encounter; F31.9 Bipolar disorder, unspecified; F17.210 Nicotine dependence, cigarettes, uncomplicated
CPT/HCPCS: 36415; 70450; 80048; 80076; 80320; 80329; 85025; 85610; 85730; 93005; 96360; 96361; 99284; J7030

== ENCOUNTER 2021-01-01 14:53 | Emergency (ER) | payer SELFPAY ==
--- OUTSIDE RECORDS SUMMARY | 2021-01-01 14:56 | XMS REPORT | Continuity of Care Document ---
:2000 Author Organization [facility] t Address [address] [place] [address] Care Team Providers Name Role Phone Unavailable Unavailable Unavailable Payers Payer Name Policy Type Policy Number Effective Date Expiration Date S ource Problems This patient has no known problems. Allergies, Adverse Reactions, Alerts Allergy Allergy Status Severity Reaction(s) Onset Inactive Treating Comm ents Source Name Type Date Date Clinician No Known DA Active U 2019-07 [facility] Allergie 09-04 [facility] s 00:00: d 00 [facility] Medications This patient has no known medications. [...] 8.5-10.1 N Completed by Nursing: NOHEPATIC FUNCTION [id number] 14:48:00 Test Item Value Reference Range Interpretation [...] Unit/L 26-192 N CK) Completed by Nursing: [id number] 14:48:00 Test Item Value Reference Range Interpretation [...] may dana yby method. Completed by Nursing: [id number] 14:48:00 Test Item Value Reference Range Interpretation Comments ALCOHOL (test code = ALC) < 3 MG/DL 0-10 N Completed by Nursing: NOCBC W/AUTO [id number] 14:44:00 Test Item Value Reference Range Interpretation [...] CRITERIA = MDIFF) - XR CHEST 1 [id number] 14:23:00 [facility] : 2000 [facility]: [facility]: [facility] 2000 Age/S: 19 / M [id number] Unit #: [id number] Loc: [place] [address] Phys: Shelley Thompson Acct: [id number] Dis Date: Status: REG ER PHONE #: [phone] Exam Date: 07/04/2020 1410 FAX #: Reason: Seizure, fall down stairs EXAMS: CPT: [id number] XR CHEST 1 V 74500 Fluoro Time: DAP (Gy m2): Air Kerma (mGy): Site ID: [id number] HISTORY: Seizure, fall down stairs FINDINGS: The lungs are clear and normally expanded. The heart and pulmonary vasculature is normal. Osseous structures are unremarkable. IMPRESSION: Negative chest X-ray. at 1423 Reported and signed by: Sundar Rubio M.D. CC: Shelley BAUTISTA PAGE 1 Signed Report Name: BJ BETTENCOURT [place] : 2000 Age/S: 19 / M [id number] Unit #: [id number] Loc: [place] [address] Phys: Shelley Thompson Acct: [id number] Dis Date: Status: REG ER PHONE #: [phone] Exam Date: 07/04/20201409 FAX #: Reason: Seizure, fall down stairs EXAMS: CPT: [id number] XR CHEST 1 V 09720 Fluoro Time: DAP (Gy m2): Air Kerma (mGy): <Continued> Technologist: Karyn Thayer, RT(R)(CT); ... Trnscb Date/Time: 07/04/2020 (2159) [email or web address] Orig Print D/T: S: 07/04/2020 (5597) PAGE 2 Signed Report- CT C-SPINE W/O [id number] 14:22:00 [facility] V : 2000 Sex: M Name: BJ BETTENCOURT V [facility] : 2000 Age/S: 19 / M [address] Unit #: [id number] Loc: [place] [address] Phys: Shelley Thompson Acct: [id number] Dis Date: Status: REG ER PHONE #: [phone] Exam Date: 07/04/20201409 FAX #: Reason: Seizure, fall down stairs EXAMS: CPT: [id number] CT C-SPINE W/O CONT 90862 SiteID: [id number] CT head TECHNIQUE: CT examination [...] Signed Report (CONTINUED) Name: BJ BETTENCOURT V [facility] : 2000 Age/S: 19 / M [id number] Unit #: [id number] Loc: [place] [address] Phys: Shelley Thompson Acct: [id number] Dis Date: Status: REG ER PHONE #: [phone] Date: 07/04/2020 1410 FAX #: Reason: Seizure, fall down stairs EXAMS: CPT: [id number] C-SPINE W/O CONT 01508 <Continued> FINDINGS: Normal cervical lordosis. No acute [...] (1422) [email or web address] Orig Print D/T: S: 07/04/2020 (1429) PAGE 2 Signed Report- CT HEAD/BRAIN W/O [id number] 14:22:00 [facility] : 2000 Sex: M Name: BJ BETTENCOURT V [facility] : 2000 Age/S: 19 / M [address] Unit #: [id number] Loc: [place] [address] Phys: Shelley Thompson Acct: [id number] Dis Date: Status: REG ER PHONE #: [phone] Exam Date: 07/04/2020 1402 FAX #: Reason: Seizure, fall down stairs with head injury EXAMS: CPT: [id number] CT HEAD/BRAIN W/O CONT 35714 SiteID: [id number] CT head TECHNIQUE: CT examination [...] 1 Signed Report (CONTINUED) Name: BJ BETTENCOURT [place] : 2000 Age/S: 19 / M [address] Unit #: [id number] Loc: [place] [address] Phys: Shelley Thompson Acct: [id number] Dis Date: Status: REG ER PHONE #: [phone] Date: 07/04/2020 1187 FAX #: Reason: Seizure, fall down stairs with head injury EXAMS: CPT: [id number] HEAD/BRAIN W/O CONT 45205 <Continued> FINDINGS: Normal cervical lordosis. No acute [...] (1422) [email or web address] Orig Print D/T: S: 07/04/2020 (6884) PAGE 2 Signed Report
--- NOTE | 2021-01-01 15:01 | ER ---
Nurse's Notes [facility] Name: El Cartwright Age: 20 yrs Sex: Male : 2000 Arrival Date: 01/01/2021 Time: 14:54 Bed Waiting Private MD: Diagnosis: Encounter for issue of other medical certificate-work release Presentation: 01/01 14:58 Chief complaint: Patient states: Fever, N/V on Saturday. Feels better now, needs work ll1 release note. Coronavirus screen: Client denies travel out of the [place] in the last 14 days. At this time, the client does not indicate any symptoms associated with coronavirus-19. Ebola Screen: Patient denies travel to an Ebola-affected area in the 21 days before illness onset. Initial Sepsis Screen: Does the patient meet any 2 criteria? No. Patient's initial sepsis screen is negative. Does the patient have a suspected source of infection? No. Patient's initial sepsis screen is negative. Risk Assessment: Do you want to hurt yourself or someone else? Patient reports no desire to harm self or others. Onset of symptoms was December 30, 2020. 14:58 Method Of Arrival: Ambulatory ll1 14:58 Acuity: ELIZABETH 5 ll1 Historical: - Allergies: 15:00 No Known Allergies; ll1 - PMHx: 15:00 Bipolar disorder; RLS; sleeping disorder; ll1 - PSHx: 15:00 external fixator femur fracture; ll1 - Immunization history:: Flu vaccine is not up to date. - Social history:: Smoking status: Patient reports the use of cigarette tobacco products, denies chronic smoking, but will smoke occasionally. Screenin:01 Abuse screen: Denies threats or abuse. Nutritional screening: No deficits noted. ll1 Tuberculosis screening: No symptoms or risk factors identified. 15:04 Fall Risk None identified. Total Thompson Fall Scale indicates No Risk (0-24 pts). ll1 Assessment: 15:03 General: Appears in no apparent distress. Behavior is calm, cooperative, appropriate ll1 for age. Pain: Denies pain. Neuro: No deficits noted. Cardiovascular: No deficits noted. Respiratory: No deficits noted. GI: No deficits noted. Vital Signs: 14:58 BP 151 / 80; Pulse 68; Resp 16; Temp 98.0; Pulse Ox 96% ; Weight 78.02 kg; Height 5 ft. ll1 9 in. (175.26 cm); Pain 0/10; 14:58 Body Mass Index 25.40 (78.02 kg, 175.26 cm) ll1 ED Course: 14:54 Patient arrived in ED. as 14:57 Adrienne Thayer FNP-C is [facility]. kb 14:57 Rolando Green MD is Attending Physician. kb 15:00 Triage completed. ll1 15:00 Arm band placed on Patient placed in an exam room, on a stretcher. ll1 15:01 Patient has correct armband on for positive identification. Bed in low position. Call ll1 light in reach. Side rails up X 1. Cardiac monitoring not applicable on this patient. 15:03 No provider procedures requiring assistance completed. Patient did not have IV access ll1 during this emergency room visit. Administered Medications: No medications were administered Outcome: 15:01 Discharge ordered by . kb 15:04 Discharged to home ambulatory. ll1 15:04 Condition: stable 15:04 Discharge instructions given to patient, Instructed on discharge instructions, follow up and referral plans. Demonstrated understanding of instructions, follow-up care. 15:04 Patient left the ED. ll1 Signatures: Adrienne Thayer FNP-C FNP-Ckb Martinez, Amelia as Shankar Paul, RN RN ll1
--- NOTE | 2021-01-01 15:01 | EDPHYS ---
Physician Documentation [facility] Name: El Cartwright Age: 20 yrs Sex: Male : 2000 Arrival Date: 01/01/2021 Time: 14:54 Bed Waiting Private MD: ED Physician Rolando Green HPI: 01/01 17:04 This 20 yrs old Male presents to ER via Ambulatory with complaints of kb asymptomatic-needs work release. 17:03 The patient has not recently seen a physician. kb 17:04 Pt reports he had a fever of 99.7 2 days ago so he called into work. States he was told kb he needed a note to go back to work by the end of today so he came to here to get one. States he hasn't had any symptoms yesterday or today and feels completely normal.. Onset: The symptoms/episode began/occurred 2 day(s) ago. Severity of symptoms: At their worst the symptoms were mild in the emergency department the symptoms have resolved. The patient has not experienced similar symptoms in the past. Historical: - Allergies: 15:00 No Known Allergies; ll1 - PMHx: 15:00 Bipolar disorder; RLS; sleeping disorder; ll1 - PSHx: 15:00 external fixator femur fracture; ll1 - Immunization history:: Flu vaccine is not up to date. - Social history:: Smoking status: Patient reports the use of cigarette tobacco products, denies chronic smoking, but will smoke occasionally. ROS: 17:04 Constitutional: Negative for fever, chills, and weight loss. kb 17:04 All other systems are negative. Exam: 17:04 Constitutional: This is a well developed, well nourished patient who is awake, alert, kb and in no acute distress. Head/Face: Normocephalic, atraumatic. ENT: Moist Mucous membranes Cardiovascular: Regular rate and rhythm with a normal S1 and S2. No gallops, murmurs, or rubs. No pulse deficits. Respiratory: Respirations even and unlabored. No increased work of breathing, no retractions or nasal flaring. Abdomen/GI: Soft, non-tender. No distention Skin: Warm, dry with normal turgor. Normal color. MS/ Extremity: Pulses equal, no cyanosis. Neurovascular intact. Full, normal range of motion. Neuro: Awake and alert, GCS 15, oriented to person, place, time, and situation. Moves all extremities. Normal gait. Psych: Awake, alert, with orientation to person, place and time. Behavior, mood, and affect are within normal limits. Vital Signs: 14:58 BP 151 / 80; Pulse 68; Resp 16; Temp 98.0; Pulse Ox 96% ; Weight 78.02 kg; Height 5 ft. ll1 9 in. (175.26 cm); Pain 0/10; 14:58 Body Mass Index 25.40 (78.02 kg, 175.26 cm) ll1 MDM: 15:00 Patient medically screened. kb 17:03 Data reviewed: vital signs, nurses notes. Data interpreted: Pulse oximetry: on room air kb is 96 %. Interpretation: normal. Counseling: I had a detailed discussion with the patient and/or guardian regarding: the historical points, exam findings, and any diagnostic results supporting the discharge/admit diagnosis, the need for outpatient follow up, a family practitioner, to return to the emergency department if symptoms worsen or persist or if there are any questions or concerns that arise at home. Administered Medications: No medications were administered Disposition: 01/01/21 15:01 Discharged to Home. Impression: Encounter for issue of other medical certificate - work release. - Condition is Stable. - Work release form, Medication Reconciliation Form, Thank You Letter, Antibiotic Education, Prescription Opioid Use form. - Follow up: Emergency Department; When: As needed; Reason: Worsening of condition. Follow up: Private Physician; When: 2 - 3 days; Reason: Recheck today's complaints, Continuance of care, Re-evaluation by your physician. Addendum: 01/04/2021 11:33 Co-signature as Attending Physician, Rolando Green MD I agree with the assessment and c hong plan of care. Signatures: Adrienne Thayer, RADIO NEWS ANCHOR-C RADIO NEWS ANCHOR-Rolando Saha MD MD cha Lewis, Lynsay, RN RN ll1 Corrections: (The following items were deleted from the chart) 01/01 15:04 15:01 01/01/2021 15:01 Discharged to Home. Impression: Encounter for issue of other ll1 medical certificate - work release. Condition is Stable. Forms are Medication Reconciliation Form, Thank You Letter, Antibiotic Education, Prescription Opioid Use. Follow up: Emergency Department; When: As needed; Reason: Worsening of condition. Follow up: Private Physician; When: 2 - 3 days; Reason: Recheck today's complaints, Continuance of care, Re-evaluation by your physician. kb
[2021-01-01 15:28] VITALS: BP 151/80; TEMP 98; O2SAT 96
== END 2021-01-01 15:04 | disposition home or self-care (01) ==
LOC: ER 14:53
DX: Z02.79 Encounter for issue of other medical certificate (principal)
CPT/HCPCS: 99281